=== PATIENT | female | born 1945 | race Caucasian/White ===

== ENCOUNTER 2017-05-03 10:28 | Outpatient (CLI) | payer MEDICARE, BC ==
[2017-05-03 10:50] LABS: BASOPHILS # (AUTO) 0.1 10^3/uL (0.0-0.1); BASOPHILS % (AUTO) 0.9 %; EOSINOPHILS # (AUTO) 0.3 10^3/uL (0.0-0.7); EOSINOPHILS % (AUTO) 3.2 %; HCT - HEMATOCRIT 43.3 % (37.0-47.0); HGB - HEMOGLOBIN 14.4 g/dL (12.0-16.0); LYMPHOCYTES # (AUTO) 2.6 10^3/uL (1.5-3.5); LYMPHOCYTES % (AUTO) 33.4 %; MEAN CORPUSCULAR HEMOGLOBIN 29.4 pg (27.0-31.0); MEAN CORPUSCULAR HGB CONC 33.2 g/dL (32.0-36.0); MEAN CORPUSCULAR VOLUME 88.6 fL (81.0-99.0); MEAN PLATELET VOLUME 7.4 fL (7.9-10.8); MONOCYTES # (AUTO) 0.5 10^3/uL (0.0-1.0); MONOCYTES % (AUTO) 6.5 %; NEUTROPHILS # (AUTO) 4.4 10^3/uL (1.5-6.6); RED BLOOD COUNT 4.89 10^6/uL (4.20-5.40); RED CELL DISTRIBUTION WIDTH 13.6 % (12.0-15.0); UNCORRECTED WHITE BLOOD COUNT 7.9 x10^3/uL; WHITE BLOOD COUNT 7.9 x10^3/uL (4.8-10.8)
[2017-05-03 11:19] LABS: ALBUMIN/GLOBULIN RATIO 1.5 (1.0-2.2); BILIRUBIN,TOTAL 0.7 mg/dL (0.2-1.0); BUN - BLOOD UREA NITROGEN 19 mg/dL (6-20); CALCIUM 9.3 mg/dL (8.5-10.3); CARBON DIOXIDE - CO2 25 mmol/L (21-32); CHLORIDE 102 mmol/L (101-111); CHOL/HDL RATIO 2.6 (<4.4); CHOLESTEROL 173 mg/dL; GFR - MDRD 55 (>89); GLUCOSE 106 mg/dL (70-100); HDL CHOLESTEROL 67 mg/dL; LDL/HDL RATIO 0.9 (<4.4); POTASSIUM 4.3 mmol/L (3.5-5.0); SODIUM 137 mmol/L (135-145); TOTAL PROTEIN 7.5 g/dL (6.7-8.2); TRIGLYCERIDES 223 mg/dL; VLDL CHOLESTEROL 45 mg/dL
== END 2017-05-03 10:29 | disposition home or self-care (01) ==
LOC: LAB 10:28
PROVIDERS: ATTEND Family Medicine
DX: E78.5 Hyperlipidemia, unspecified (principal); R73.9 Hyperglycemia, unspecified; E03.9 Hypothyroidism, unspecified
CPT/HCPCS: 36415; 80053; 80061; 84443; 85025

== ENCOUNTER 2017-12-06 08:44 | Outpatient (CLI) | payer MEDICARE, BC ==
[2017-12-06 09:13] LABS: BASOPHILS # (AUTO) 0.1 10^3/uL (0.0-0.1); EOSINOPHILS # (AUTO) 0.2 10^3/uL (0.0-0.7); EOSINOPHILS % (AUTO) 2.1 %; HGB - HEMOGLOBIN 14.2 g/dL (12.0-16.0); LYMPHOCYTES # (AUTO) 2.6 10^3/uL (1.5-3.5); LYMPHOCYTES % (AUTO) 27.9 %; MEAN CORPUSCULAR HEMOGLOBIN 30.1 pg (27.0-31.0); MEAN CORPUSCULAR HGB CONC 33.6 g/dL (32.0-36.0); MEAN CORPUSCULAR VOLUME 89.7 fL (81.0-99.0); MEAN PLATELET VOLUME 7.9 fL (7.9-10.8); MONOCYTES # (AUTO) 0.5 10^3/uL (0.0-1.0); MONOCYTES % (AUTO) 5.8 %; NEUTROPHILS # (AUTO) 5.9 10^3/uL (1.5-6.6); NEUTROPHILS % (AUTO) 63.2 %; PLT - PLATELET COUNT 266 10^3/uL (130-450); WHITE BLOOD COUNT 9.4 x10^3/uL (4.8-10.8)
[2017-12-06 09:25] LABS: ALBUMIN 3.9 g/dL (3.2-5.5); ALBUMIN/GLOBULIN RATIO 1.2 (1.0-2.2); ALKALINE PHOSPHATASE 71 IU/L (42-121); ALT ALANINE AMINOTRANSFERASE 19 IU/L (10-60); AST ASPARTATE AMINOTRANSFERASE 19 IU/L (10-42); BILIRUBIN,TOTAL 0.8 mg/dL (0.2-1.0); BUN - BLOOD UREA NITROGEN 15 mg/dL (6-20); CARBON DIOXIDE - CO2 25 mmol/L (21-32); CHLORIDE 104 mmol/L (101-111); CHOL/HDL RATIO 2.2 (<4.4); CHOLESTEROL 163 mg/dL; CREATININE 0.9 mg/dL (0.4-1.0); GFR - MDRD 62 (>89); GLUCOSE 108 mg/dL (70-100); HDL CHOLESTEROL 73 mg/dL; LDL CHOLESTEROL,CALCULATED 67 mg/dL; LDL/HDL RATIO 0.9 (<4.4); SODIUM 137 mmol/L (135-145); TOTAL PROTEIN 7.1 g/dL (6.7-8.2); VLDL CHOLESTEROL 23 mg/dL
[2017-12-06 10:30] LABS: THYROID STIMULATING HORMONE 5.9 uIU/mL (0.34-5.60)
[2017-12-06 11:10] LABS: FREE T4 (FREE THYROXINE) 0.86 ng/dL (0.58-1.64)
== END 2017-12-06 08:45 | disposition home or self-care (01) ==
LOC: LAB 08:44
PROVIDERS: ATTEND Family Medicine
DX: E78.5 Hyperlipidemia, unspecified (principal); R73.9 Hyperglycemia, unspecified; E03.9 Hypothyroidism, unspecified
CPT/HCPCS: 36415; 80053; 80061; 83721; 84439; 84443; 85025

== ENCOUNTER 2018-02-07 09:20 | Outpatient (CLI) | payer MEDICARE, BC | END 2018-02-07 09:21 | disposition home or self-care (01) | LOC: LAB 09:20 | PROVIDERS: ATTEND Family Medicine | DX: N95.2 Postmenopausal atrophic vaginitis (principal) | CPT/HCPCS: 36415; 84443; 84481 ==

== ENCOUNTER 2018-04-10 07:24 | Emergency (ER) | payer MEDICARE, BC ==
[2018-04-10 07:39] VITALS: BP 146/76
[2018-04-10] MEDS ORDERED: DEXAMETHASONE 10 MG/ML VIAL PO STA (07:48)
--- NOTE | 2018-04-10 07:50 | ED Physician Documentation ---
PD HPI URI - Stated complaint Stated Complaint: THROAT PX - Chief complaint Chief Complaint: General - History obtained from History obtained from: Patient, Family - History of Present Illness Timing - onset: How many days ago (5) Timing duration: Days (5) Timing details: Abrupt onset, Still present Associated symptoms: Sore throat, Productive cough Contributing factors: Sick contact ( sick with similar), Travel ( returned from travel to [place]) Improves by: Rest, Medication Similar symptoms before: Has not had sx before Recently seen: Not recently seen - Additional information Additional information: 72-year-old female with a history of chronic persistent asthma has returned from travel to [place] and the day after she got home she developed a sore throat. She states the pain has made it difficult for her to swallow food and she has lost her voice. She felt this was just a cold and then yesterday began to cough up some yellow phlegm she become concerned is coming to the emergency department. She states the worst part of all of this is the pain involved in swallowing. Review of Systems Constitutional: reports: Myalgias, Fatigue. denies: Fever Eyes: denies: Decreased vision Ears: denies: Loss of hearing, Ear pain Nose: reports: Congestion. 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 - Present Medications Home Medications: Ambulatory Orders Medication Instructions Recorded Confirmed Albuterol Sulfate [Proair Hfa] 2 inh IH Q4HR PRN 04/07/13 04/14/17 Aspirin [Aspir 81] 81 mg PO DAILY 04/07/13 04/14/17 Fluticasone [Flonase] 2 sprays ANDREA DAILY PRN 04/07/13 04/14/17 Levothyroxine Sodium [Synthroid] 100 mcg PO DAILY 04/07/13 04/14/17 Loratadine [Claritin] 10 mg ORAL DAILY 04/07/13 04/14/17 Multivitamin [Multi-Day Vitamins] 1 tab ORAL DAILY 04/07/13 04/14/17 Vit D3/Folic Acid/B2/B6/B12 2,000 unit ORAL DAILY 04/07/13 04/14/17 [Folgard Tablet] Metoprolol Tartrate 25 mg PO DAILY 04/17/15 04/14/17 Montelukast [Singulair] 10 mg PO QPM 04/17/15 04/14/17 Budesonide/Formoterol 160/4.5 2 puffs INH BID 04/15/16 04/14/17 [Symbicort] Azithromycin [Zithromax] 250 mg PO DAILY #6 tablet 04/10/18 - Allergies Allergies/Adverse Reactions: Allergies Allergy/AdvReac Type Severity Reaction Status Date / Time adhesive Allergy Rash Verified 04/10/18 07:41 formaldehyde Allergy Rash Verified 04/10/18 07:41 nickel [Nickel] Allergy Rash Verified 04/10/18 07:41 cephalexin monohydrate * AdvReac Mild neuropathy Verified 04/10/18 07:41 [From Keflex] pain metronidazole [From Flagyl] AdvReac Mild neuropathy Verified 04/10/18 07:41 pain Metronidazole HCl * AdvReac Mild neuropathy Verified 04/10/18 07:41 [From Flagyl] pain cefdinir AdvReac Hives Verified 04/10/18 07:41 cetirizine HCl * AdvReac Hallucinati Verified 04/10/18 07:41 [From Zyrtec] ons gabapentin AdvReac Unknown Verified 04/10/18 07:41 simvastatin [From Zocor] AdvReac Cramps Verified 04/10/18 07:41 Horse serum Allergy Unknown unknown Uncoded 04/07/13 13:23 Methyl methaculate (medical Allergy Unknown unknown Uncoded 04/07/13 13:26 Plastic neosporin eye gtts. Allergy Unknown unknown Uncoded 04/07/13 13:24 sulfites AdvReac Respiratory Uncoded 04/18/14 14:54 - Social History Does the pt smoke?: No Smoking Status: Never smoker Does the pt drink ETOH?: No Does the pt have substance abuse?: No - Immunizations Immunizations are current?: Yes - POLST Patient has POLST: No PD ED PE NORMAL - Vitals Vital signs reviewed: Yes (hypertensive ) - General General: Alert and oriented X 3, No acute distress, Well developed/nourished - HEENT HEENT: Atraumatic, PERRL, EOMI, Ears normal, Moist mucous membranes, Other ( inflamation to the posterior pharynx) - Neck Neck: Supple, no meningeal sign, No bony TTP - Cardiac Cardiac: RRR, No murmur - Respiratory Respiratory: No respiratory distress, Clear bilaterally - Abdomen Abdomen: Soft, Non tender - Back Back: No CVA TTP, No spinal TTP - Derm Derm: Normal color, Warm and dry, No rash - Extremities Extremities: No deformity, No edema - Neuro Neuro: Alert and oriented X 3, 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, No motor deficit, No sensory deficit, Normal speech Eye Opening: Spontaneous Motor: Obeys Commands Verbal: Oriented GCS Score: 15 - Psych Psych: Normal mood, Normal affect Results - Vitals Vitals: Vital Signs - 24 hr 04/10/18 07:37 Temperature 36.1 C L Heart Rate 75 Respiratory 20 Rate Blood Pressure 146/76 H O2 Saturation 98 Oxygen O2 Source Room air PD MEDICAL DECISION MAKING - ED course Complexity details: reviewed old records, considered differential, d/w patient, d/w family ED course: 72-year-old female with chronic persistent asthma has a severe sore throat and is having some difficulty swallowing. She did lose her voice and I am thinking this is likely a parainfluenza virus 1 or 2. She has developed production of thick yellow phlegm and I suspect secondary infection and the reason for the emergency department visit. She is administered dexamethasone here in the emergency department and we will place her on some azithromycin for secondary infection. - Sepsis Event Vital Signs: Vital Signs - 24 hr 04/10/18 07:37 Temperature 36.1 C L Heart Rate 75 Respiratory 20 Rate Blood Pressure 146/76 H O2 Saturation 98 Oxygen O2 Source Room air Departure - Departure Disposition: 01 Home, Self Care Clinical Impression: Parainfluenza virus laryngitis Asthmatic bronchitis Qualifiers: Asthma severity: moderate Asthma persistence: persistent Asthma complication type: with acute exacerbation Qualified Code(s): J45.41 - Moderate persistent asthma with (acute) exacerbation Condition: Stable Instructions: ED Bronchitis Asthmatic, ED Pharyngitis Viral Follow-Up: Jesus Parmar MD [Primary Care Provider] - Prescriptions: Azithromycin [Zithromax] 250 mg PO DAILY #6 tablet
== END 2018-04-10 07:57 | disposition home or self-care (01) ==
LOC: ED 07:24
DX: J45.41 Moderate persistent asthma with (acute) exacerbation (principal); J02.9 Acute pharyngitis, unspecified; I10 Essential (primary) hypertension; E03.9 Hypothyroidism, unspecified; Z79.82 Long term (current) use of aspirin
CPT/HCPCS: 99283

== ENCOUNTER 2018-04-20 09:36 | Day surgery (SDC) | payer MEDICARE, BC ==
[2018-04-20] MEDS ORDERED: LACTATED RINGERS 1,000 ML IV ONE (09:40)
[2018-04-20] MEDS ORDERED: fentaNYL 250 MCG/5 ML VIAL IVP ONE (11:45)
[2018-04-20] MEDS ORDERED: MIDAZOLAM 2 MG/2 ML VIAL IVP ONE (11:45)
[2018-04-20] MEDS ORDERED: SIMETHICONE 40 MG/0.6 ML 30 ML BOTTLE ONE (12:02)
[2018-04-20 12:29] VITALS: BP 116/65
== END 2018-04-20 09:37 | disposition home or self-care (01) ==
LOC: SDS 09:36
PROVIDERS: ATTEND Internal Medicine
PROC: 0DBL8ZZ Excision of Transverse Colon, Via Natural or Artificial Opening Endoscopic (ICD-10-PCS; principal; 2018-04-20 10:30)
DX: Z12.11 Encounter for screening for malignant neoplasm of colon (principal); D12.3 Benign neoplasm of transverse colon; K64.1 Second degree hemorrhoids
CPT/HCPCS: 45380; A9270; J7120; 88305

== ENCOUNTER 2018-05-26 10:58 | Outpatient (CLI) | payer MEDICARE, BC ==
--- NOTE | 2018-05-26 14:35 | CT Report ---
Reason: PULMONARY NODULE Procedure Date: 05/26/2018 Accession Number: [id number] / [id number] Procedure: CT - Chest W/O CPT Code: FULL RESULT: EXAM: CT CHEST EXAM DATE: 05/26/2018 11:17 AM. CLINICAL HISTORY: PULMONARY NODULE. COMPARISONS: 05/04/2013. TECHNIQUE: Routine helical CT imaging was performed through the chest. IV contrast: None. Reconstructions: Coronal and sagittal. In accordance with CT protocol optimization, one or more of the following dose reduction techniques were utilized for this exam: automated exposure control, adjustment of mA and/or KV based on patient size, or use of iterative reconstructive technique. FINDINGS: Lungs/Pleura: The previously described lingular nodule is no longer seen. The left lower lobe 2 mm nodule described on the prior report is unchanged series 4 image 47. Scattered punctate calcified granulomata are present. A few dilated mucus filled bronchi and peripheral 1-3 mm nodules are noted; for example series 4 images 39 and 49. Pulmonary vasculature is normal. No pericardial or pleural effusion. No pneumothorax. Mediastinum: No adenopathy or masses. The heart and great vessels are normal. Bones: Scattered degenerative change in the spine. Mild mid thoracic dextroscoliosis. Included upper Abdomen: Cholelithiasis Other: Postsurgical change right breast IMPRESSION: 1. Presumed chronic changes are present including scattered punctate calcifications, few peripheral 1-3 mm nodules, and few dilated mucus filled bronchi. No suspicious lung nodules are seen. 2. Cholelithiasis 3. No acute findings. RADIA
== END 2018-05-26 10:59 | disposition home or self-care (01) ==
LOC: DI 10:58
PROVIDERS: ATTEND Allergy & Immunology
DX: R91.8 Other nonspecific abnormal finding of lung field (principal); K80.20 Calculus of gallbladder without cholecystitis without obstruction
CPT/HCPCS: 71250

== ENCOUNTER 2018-06-08 10:49 | Outpatient (CLI) | payer MEDICARE, BC ==
--- NOTE | 2018-06-09 15:42 | Mammography Report ---
Reason: ANNUAL SCREENING Procedure Date: 06/08/2018 Accession Number: [id number] / [id number] Procedure: TRESSA - Screening Mammo w/Gaurang CPT Code: FULL RESULT: EXAM: Screening Mammo w/Gaurang DATE: 06/08/2018 11:46 AM CLINICAL HISTORY: 72 year-old nulliparous female with history of breast cancer status post lumpectomy and radiation for right breast cancer. TECHNIQUE: Bilateral CC and MLO views were obtained. COMPARISON: 06/07/2017, 06/04/2016. FINDINGS: The breasts demonstrate scattered fibroglandular densities bilaterally. Posttreatment changes are seen in the right breast. No suspicious masses, clustered microcalcifications, or regions of architectural distortion are identified. IMPRESSION: Benign findings RECOMMENDATION: Routine annual screening unless otherwise clinically indicated. BIRADS CATEGORY 2: Benign findings STANDARD QUALIFYING STATEMENTS: 1. This examination was not reviewed with the aid of Computer-Aided Detection (CAD). 2. A negative or benign imaging report should not delay biopsy if clinically suspicious findings are present. Consider surgical consultation if warranted. More than 5% of cancers are not identified by imaging. 3. Dense breasts may obscure an underlying neoplasm. 4. This examination was reviewed with the aid of 3D breast imaging (tomosynthesis).
== END 2018-06-08 10:50 | disposition home or self-care (01) ==
LOC: DI 10:49
DX: Z12.31 Encounter for screening mammogram for malignant neoplasm of breast (principal); Z85.3 Personal history of malignant neoplasm of breast
CPT/HCPCS: 77063; 77067

== ENCOUNTER 2018-06-08 11:51 | Outpatient (CLI) | payer MEDICARE, BC | END 2018-06-08 11:52 | disposition home or self-care (01) | LOC: LAB 11:51 | PROVIDERS: ATTEND Allergy & Immunology | DX: J45.30 Mild persistent asthma, uncomplicated (principal) | CPT/HCPCS: 36415; 85018 ==

== ENCOUNTER 2018-12-02 09:27 | Outpatient (CLI) | payer MEDICARE, BC ==
[2018-12-02 09:58] LABS: BASOPHILS # (AUTO) 0.1 10^3/uL (0.0-0.1); BASOPHILS % (AUTO) 1.5 %; EOSINOPHILS # (AUTO) 0.2 10^3/uL (0.0-0.7); EOSINOPHILS % (AUTO) 2.5 %; LYMPHOCYTES # (AUTO) 2.4 10^3/uL (1.5-3.5); MEAN CORPUSCULAR HEMOGLOBIN 29.4 pg (27.0-31.0); MEAN CORPUSCULAR HGB CONC 33.2 g/dL (32.0-36.0); MEAN CORPUSCULAR VOLUME 88.5 fL (81.0-99.0); MEAN PLATELET VOLUME 7.9 fL (7.9-10.8); MONOCYTES # (AUTO) 0.5 10^3/uL (0.0-1.0); MONOCYTES % (AUTO) 6.7 %; NEUTROPHILS # (AUTO) 4.3 10^3/uL (1.5-6.6); NEUTROPHILS % (AUTO) 57.3 %; PLT - PLATELET COUNT 282 10^3/uL (130-450); RED BLOOD COUNT 4.76 10^6/uL (4.20-5.40); RED CELL DISTRIBUTION WIDTH 14.4 % (12.0-15.0); WHITE BLOOD COUNT 7.5 x10^3/uL (4.8-10.8)
[2018-12-02 10:14] LABS: ALBUMIN/GLOBULIN RATIO 1.3 (1.0-2.2); ALKALINE PHOSPHATASE 71 IU/L (42-121); ALT ALANINE AMINOTRANSFERASE 22 IU/L (10-60); AST ASPARTATE AMINOTRANSFERASE 24 IU/L (10-42); BILIRUBIN,TOTAL 0.7 mg/dL (0.2-1.0); BUN - BLOOD UREA NITROGEN 20 mg/dL (6-20); CARBON DIOXIDE - CO2 27 mmol/L (21-32); CHLORIDE 102 mmol/L (101-111); CHOL/HDL RATIO 2.4 (<4.4); CHOLESTEROL 159 mg/dL; CREATININE 0.8 mg/dL (0.4-1.0); GFR - MDRD 70 (>89); GLUCOSE 138 mg/dL (70-100); HDL CHOLESTEROL 65 mg/dL; LDL CHOLESTEROL,CALCULATED 63 mg/dL; SODIUM 139 mmol/L (135-145); TOTAL PROTEIN 7.1 g/dL (6.7-8.2); VLDL CHOLESTEROL 31 mg/dL
== END 2018-12-02 09:28 | disposition home or self-care (01) ==
LOC: LAB 09:27
PROVIDERS: ATTEND Family Medicine
DX: E03.9 Hypothyroidism, unspecified (principal)
CPT/HCPCS: 36415; 80053; 80061; 83721; 84443; 85025

== ENCOUNTER 2018-12-16 10:57 | Outpatient (CLI) | payer MEDICARE, BC ==
--- NOTE | 2018-12-19 10:28 | CT Report ---
Reason: ASTHMA/COPD UNSPECIFIED,PULMONARY NODULE Procedure Date: 12/16/2018 Accession Number: [id number] / [id number] Procedure: CT - CHEST WO CPT Code: FULL RESULT: EXAM: CT CHEST EXAM DATE: 12/16/2018 11:10 AM. CLINICAL HISTORY: ASTHMA/COPD Unspecified, pulmonary NODULE. COMPARISONS: CHEST W/O 05/26/2018 11:16 AM. TECHNIQUE: Routine helical CT imaging was performed through the chest. IV contrast: None. Reconstructions: Coronal and sagittal. In accordance with CT protocol optimization, one or more of the following dose reduction techniques were utilized for this exam: automated exposure control, adjustment of mA and/or KV based on patient size, or use of iterative reconstructive technique. 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 Areas of scarring bilaterally. Calcified granulomas. Mediastinum: Normal. No adenopathy or masses. The heart and great vessels are normal. Bones: DJD spine Visualized Abdomen: Cholelithiasis Other: None. IMPRESSION: 1. Stable small bilateral lung nodules largest 5 mm. 2. Bilateral areas of mucous plugging. 3. Cholelithiasis. 4. No new findings RADIA
== END 2018-12-16 10:58 | disposition home or self-care (01) ==
LOC: DI 10:57
PROVIDERS: ATTEND Allergy & Immunology
DX: R91.8 Other nonspecific abnormal finding of lung field (principal); K80.20 Calculus of gallbladder without cholecystitis without obstruction
CPT/HCPCS: 71250

== ENCOUNTER 2019-05-04 08:32 | Outpatient (CLI) | payer MEDICARE, BC ==
[2019-05-04 09:38] LABS: BASOPHILS % (AUTO) 0.4 %; EOSINOPHILS # (AUTO) 0.2 10^3/uL (0.0-0.7); EOSINOPHILS % (AUTO) 1.7 %; HGB - HEMOGLOBIN 14.2 g/dL (12.0-16.0); LYMPHOCYTES # (AUTO) 2.8 10^3/uL (1.5-3.5); LYMPHOCYTES % (AUTO) 27.6 %; MEAN CORPUSCULAR HGB CONC 33.5 g/dL (32.0-36.0); MEAN CORPUSCULAR VOLUME 89.6 fL (81.0-99.0); MEAN PLATELET VOLUME 9.8 fL (7.9-10.8); MONOCYTES # (AUTO) 0.6 10^3/uL (0.0-1.0); MONOCYTES % (AUTO) 6.2 %; NEUTROPHILS # (AUTO) 6.5 10^3/uL (1.5-6.6); NEUTROPHILS % (AUTO) 63.5 %; PLT - PLATELET COUNT 311 10^3/uL (130-450); RED BLOOD COUNT 4.73 10^6/uL (4.20-5.40); RED CELL DISTRIBUTION WIDTH 12.9 % (12.0-15.0); WHITE BLOOD COUNT 10.3 x10^3/uL (4.8-10.8)
[2019-05-04 10:16] LABS: ALBUMIN 4.2 g/dL (3.2-5.5); ALBUMIN/GLOBULIN RATIO 1.5 (1.0-2.2); BILIRUBIN,TOTAL 0.6 mg/dL (0.2-1.0); CALCIUM 8.9 mg/dL (8.5-10.3); CREATININE 0.8 mg/dL (0.4-1.0)
== END 2019-05-04 08:33 | disposition home or self-care (01) ==
LOC: LAB 08:32
PROVIDERS: ATTEND Family Medicine
DX: E78.5 Hyperlipidemia, unspecified (principal); R00.2 Palpitations; J45.998 Other asthma; C50.919 Malignant neoplasm of unspecified site of unspecified female breast
CPT/HCPCS: 36415; 80053; 85025

== ENCOUNTER 2019-06-09 09:48 | Outpatient (CLI) | payer MEDICARE, BC ==
--- NOTE | 2019-06-12 09:25 | Mammography Report ---
Reason: ANNUAL MAMMO Procedure Date: 06/09/2019 Accession Number: [id number] / [id number] Procedure: TRESSA - Screening Mammo w/Gaurang CPT Code: Final Report FULL RESULT: EXAM: Screening Mammo w/Gaurang DATE: 06/09/2019 10:28 AM CLINICAL HISTORY: Routine screening. Personal history of treated right breast cancer status post lumpectomy in 2001. No reported family history of breast cancer. TECHNIQUE: (B) - Bilateral CC and MLO views were obtained. COMPARISON: 06/08/2018 through 11/13/2009 PARENCHYMAL PATTERN: (F) - The breasts demonstrate diffuse fatty replacement bilaterally. FINDINGS: Bilateral breasts: There are stable lumpectomy changes from the subareolar right breast. There are no suspicious masses, calcifications, or areas of distortion. IMPRESSION: Benign findings. BI-RADS category 2. RECOMMENDATION: (ANNUAL) - Recommend routine annual screening mammography. BI-RADS CATEGORY: (2) - Benign Findings. STANDARD QUALIFYING STATEMENTS: 1. This examination was not reviewed with the aid of Computer-Aided Detection (CAD). 2. A negative or benign imaging report should not preclude biopsy if clinically suspicious findings are present. 3. Dense breasts may obscure an underlying neoplasm. 4. This examination was reviewed with the aid of 3D breast imaging (tomosynthesis).
== END 2019-06-09 09:49 | disposition home or self-care (01) ==
LOC: DI 09:48
DX: Z12.31 Encounter for screening mammogram for malignant neoplasm of breast (principal); Z85.3 Personal history of malignant neoplasm of breast
CPT/HCPCS: 77063; 77067

== ENCOUNTER 2020-02-19 09:47 | Outpatient (CLI) | payer MEDICARE, BC ==
[2020-02-19 10:14] LABS: BASOPHILS % (AUTO) 0.4 %; EOSINOPHILS # (AUTO) 0.2 10^3/uL (0.0-0.7); EOSINOPHILS % (AUTO) 2.9 %; HGB - HEMOGLOBIN 14.4 g/dL (12.0-16.0); LYMPHOCYTES # (AUTO) 2.6 10^3/uL (1.5-3.5); MEAN CORPUSCULAR HEMOGLOBIN 30.4 pg (27.0-31.0); MEAN CORPUSCULAR HGB CONC 33.3 g/dL (32.0-36.0); MEAN CORPUSCULAR VOLUME 91.4 fL (81.0-99.0); MEAN PLATELET VOLUME 9.4 fL (7.9-10.8); MONOCYTES # (AUTO) 0.5 10^3/uL (0.0-1.0); MONOCYTES % (AUTO) 7.1 %; NEUTROPHILS # (AUTO) 4.2 10^3/uL (1.5-6.6); NEUTROPHILS % (AUTO) 55.2 %; PLT - PLATELET COUNT 284 10^3/uL (130-450); RED BLOOD COUNT 4.74 10^6/uL (4.20-5.40); RED CELL DISTRIBUTION WIDTH 13.4 % (12.0-15.0); WHITE BLOOD COUNT 7.6 x10^3/uL (4.8-10.8)
[2020-02-19 10:35] LABS: ALBUMIN 4.4 g/dL (3.2-5.5); ALBUMIN/GLOBULIN RATIO 1.7 (1.0-2.2); ALKALINE PHOSPHATASE 67 IU/L (42-121); ALT ALANINE AMINOTRANSFERASE 22 IU/L (10-60); AST ASPARTATE AMINOTRANSFERASE 19 IU/L (10-42); BUN - BLOOD UREA NITROGEN 19 mg/dL (6-20); CALCIUM 8.9 mg/dL (8.5-10.3); CARBON DIOXIDE - CO2 24 mmol/L (21-32); CHLORIDE 104 mmol/L (101-111); CHOL/HDL RATIO 2.3 (<4.4); CHOLESTEROL 147 mg/dL; CREATININE 0.9 mg/dL (0.4-1.0); GLUCOSE 132 mg/dL (70-100); HDL CHOLESTEROL 64 mg/dL; LDL CHOLESTEROL,CALCULATED 53 mg/dL; LDL/HDL RATIO 0.8 (<4.4); SODIUM 138 mmol/L (135-145); VLDL CHOLESTEROL 30 mg/dL
== END 2020-02-19 09:48 | disposition home or self-care (01) ==
LOC: LAB 09:47
PROVIDERS: ATTEND Family Medicine
DX: J44.9 Chronic obstructive pulmonary disease, unspecified (principal); R03.0 Elevated blood-pressure reading, without diagnosis of hypertension; E78.5 Hyperlipidemia, unspecified
CPT/HCPCS: 36415; 80053; 80061; 83721; 84443; 85025

== ENCOUNTER 2020-06-26 14:28 | Outpatient (CLI) | payer MEDICARE, BC ==
--- NOTE | 2020-06-28 13:17 | Mammography Report ---
BILATERAL DIGITAL SCREENING MAMMOGRAM 3D/2D: 06/26/2020 CLINICAL: Routine screening. Personal history of right breast cancer. Comparison is made to exams dated: 06/09/2019 mammogram, 06/07/2017 mammogram, 06/08/2018 mammogram, mammogram, 05/31/2015 mammogram, and 05/17/2014 mammogram - [facility]. Th e tissue of both breasts is predominantly fatty. No significant masses, calcifications, or other findings are seen in either breast. There has been no significant interval change. IMPRESSION: NEGATIVE There is no mammographic evidence of malignancy. A 1 year screening mammogram is recommended. This exam was interpreted at Station ID: [id number]. NOTE: For mammograms, a report in lay terms will be sent to the patient. Approximately 15% of breast malignancies will not be visualized mammographically. In the management of a palpable breast mass, a negative mammogram must not discourage biopsy of a clinically suspicious lesion. Electronically Signed By: Brian Edmonds M.D., jr/edmundo:06/26/2020 15:28:04 ACR BI-RADS Category 1: Negative 3341F PARENCHYMAL PATTERN: (F) - The breast(s) demonstrate(s) diffuse fatty replacement. BI-RADS CATEGORY: (1) - 1 RECOMMENDATION: (ANNUAL) - Recommend routine annual screening mammography. [id number] 1 year screening LATERALITY: (B)
== END 2020-06-26 14:29 | disposition home or self-care (01) ==
LOC: DI 14:28
PROVIDERS: ATTEND Internal Medicine
DX: Z12.31 Encounter for screening mammogram for malignant neoplasm of breast (principal); Z08 Encounter for follow-up examination after completed treatment for malignant neoplasm; Z85.3 Personal history of malignant neoplasm of breast
CPT/HCPCS: 77063; 77067

== ENCOUNTER 2020-08-14 09:23 | Outpatient (CLI) | payer MEDICARE, BC ==
--- OUTSIDE RECORDS SUMMARY | 2020-08-14 09:27 | EXTERNAL MEDICAL SUMMARY RPT | Continuity of Care Document ---
:1945 Demographics Phone Unavailable Preferred Language Urdu Marital Status Unknown Cheondoism Affiliation Unknown Race Unknown Ethnic Group Unknown Author Organization [facility] Address [address] [place] [address] Phone Care Team Providers Name Role Phone Ghulam Unavailable Unavailable Unavailable Unavailable Brittany Unavailable Unavailable Nori Unavailable Unavailable Problems date description facility 2012-12-14 08:[address] [facility] 2012-12-14 08:21 OTH MED,LT,CURRENT USE [facility] [place] 2012-12-14 08:21 SCREEN LIPOID DISORDERS [facility] 2012-12-21 00:00 HYPOTHYROIDISM NOS [facility] [place] 2013-01-19 18:22 HYPOTHYROIDISM NOS [facility] [place] 2013-01-19 18:22 IDIO PERIPH NEURPTHY NOS [facility] 2013-02-20 09:41 LUMB/LUMBOSAC DISC DEGEN [facility] 2013-02-20 09:41 PAIN IN LIMB [facility] [place] 2013-02-20 09:41 MUSCSKEL SYMPT LIMB NEC [facility] 2013-03-06 10:10 HX OF BREAST MALIGNANCY [facility] 2013-03-06 10:10 SCRN MAMMO-HIGH RISK PT, MALIGNANT Formerly [facility] NEOPLASM OF BREAST 2013-04-10 11:35 BENIGN NEOPLASM LG BOWEL [facility] 2013-04-10 11:35 MONONEURITIS LEG NOS [facility] [place] 2013-04-10 11:35 DIVERTICULOSIS COLON (W/O MENT OF [facility] HEMORRHAGE) 2013-04-10 11:35 HX OF BREAST MALIGNANCY [facility] 2013-04-10 11:35 SCREEN MAL NEOP-COLON [facility] d[facility] [place] 2013-04-17 08:44 HX OF BREAST MALIGNANCY [facility] 2013-04-17 08:44 COMB TREATMENT FOLLOW-UP [facility] 2013-05-04 08:[address] [facility] 2013-05-04 08:56 DEPRESSIVE DISORDER NEC [facility] 2013-05-04 08:56 IDIO PERIPH NEURPTHY NOS [facility] 2013-05-04 08:[address] [facility] 2013-05-04 08:56 CHRONIC OBSTRUCTIVE ASTHMA, NOS [facility] 2013-05-04 08:56 DIVERTICULITIS OF COLON WITH [facility] HEMORRHAGE 2013-05-04 08:56 OSTEOARTHROS NOS-UNSPEC [facility] 2013-05-04 08:56 ABDOMINAL PAIN, LEFT LOWER [facility] QUADRANT 2013-05-18 09:14 IDIO PERIPH NEURPTHY NOS [facility] 2013-05-29 13:55 IDIO PERIPH NEURPTHY NOS [facility] 2013-07-18 10:38 DIVERTICULITIS COLON (W/O MENT OF [facility] HEMORRHAGE) 2013-07-19 10:24 DIVERTICULITIS COLON (W/O MENT OF [facility] HEMORRHAGE) 2013-12-15 08:34 HYPERLIPIDEMIA NEC/NOS [facility] 2013-12-15 08:34 OTHER ABNORMAL GLUCOSE [facility] 2013-12-15 08:34 ELEV BL PRES W/O HYPERTN [facility] 2013-12-15 08:34 OTH MED,LT,CURRENT USE [facility] 2014-01-17 08:00 JOINT PAIN-MULT JTS [facility] 2014-02-01 08:[address] [facility] 2014-04-18 09:48 MONONEURITIS ARM NOS [facility] 2014-04-18 09:48 MONONEURITIS LEG NOS [facility] 2014-04-18 09:48 CARDIAC DYSRHYTHMIAS [facility] 2014-04-18 09:48 OSTEOARTHROS NOS-UNSPEC [facility] 2014-04-18 09:48 HX OF BREAST MALIGNANCY [facility] 2014-04-18 09:48 COMB TREATMENT FOLLOW-UP [facility] 2014-05-15 07:00 IDIO PERIPH NEURPTHY NOS [facility] 2014-05-15 07:[address] [facility] 2014-05-15 07:00 OTHER ABNORMAL GLUCOSE [facility] 2014-05-17 10:31 HX OF BREAST MALIGNANCY [facility] 2014-05-17 10:31 SCRN MAMMO-HIGH RISK PT, MALIGNANT i [facility] NEOPLASM OF BREAST 2015-03-06 09:[address] [facility] 2015-03-06 09:06 LIPOID METABOL DIS NOS [facility] 2015-03-06 09:06 ABN BLOOD CHEMISTRY [facility] 2015-04-08 09:19 HYPERLIPIDEMIA NEC/NOS [facility] 2015-04-17 09:07 MONONEURITIS ARM NOS [facility] 2015-04-17 09:07 MONONEURITIS LEG NOS [facility] 2015-04-17 09:07 CARDIAC DYSRHYTHMIAS [facility] 2015-04-17 09:07 OSTEOARTHROS NOS-UNSPEC [facility] 2015-04-17 09:07 HX OF BREAST MALIGNANCY [facility] 2015-04-17 09:07 COMB TREATMENT FOLLOW-UP [facility] 2015-05-31 10:51 ENCNTR SCREEN MAMMOGRAM FOR [facility] MALIGNANT NEOPLASM OF BREAST 2015-05-31 10:51 PERSONAL HISTORY OF MALIGNANT [facility] NEOPLASM OF BREAST 2015-12-21 09:25 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, UNSPECIFIED 2015-12-21 09:25 SYNCOPE AND COLLAPSE [facility] 2015-12-21 09:25 HYPERGLYCEMIA, UNSPECIFIED [facility] 2016-01-30 08:47 UNSPECIFIED MENOPAUSAL AND [facility] PERIMENOPAUSAL DISORDER 2016-04-15 09:35 ENCNTR FOR FOLLOW-UP EXAM AFTER [facility] TRTMT FOR MALIGNANT NEOPLASM 2016-04-15 09:35 PERSONAL HISTORY OF MALIGNANT [facility] NEOPLASM OF BREAST 2016-05-04 09:07 HYPERLIPIDEMIA, UNSPECIFIED [facility] 2016-05-04 09:07 UNSPECIFIED ASTHMA, UNCOMPLICATED [facility] 2016-05-04 09:[address] [facility] 2016-05-04 09:07 ELEVATED BLOOD-PRESSURE READING, [facility] W/O DIAGNOSIS OF HTN 2016-06-04 14:03 ENCNTR SCREEN MAMMOGRAM FOR [facility] MALIGNANT NEOPLASM OF BREAST 2016-06-04 14:03 PERSONAL HISTORY OF MALIGNANT [facility] NEOPLASM OF BREAST 2017-05-03 10:28 [facility] 2017-05-03 10:28 HYPERLIPIDEMIA, [facility] 2017-05-03 10:28 HYPERGLYCEMIA, [facility] 2017-06-07 13:05 ENCNTR SCREEN MAMMOGRAM FOR [facility] MALIGNANT NEOPLASM OF BREAST 2017-06-07 13:05 PERSONAL HISTORY OF MALIGNANT [facility] NEOPLASM OF BREAST 2017-06-09 07:00 ENCNTR FOR FOLLOW-UP EXAM AFTER [facility] TRTMT FOR MALIGNANT NEOPLASM 2017-06-09 07:00 PERSONAL HISTORY OF MALIGNANT [facility] NEOPLASM OF BREAST 2017-12-06 08:44 HYPOTHYROIDISM, UNSPECIFIED [facility] 2017-12-06 08:44 HYPERLIPIDEMIA, UNSPECIFIED [facility] 2017-12-06 08:44 HYPERGLYCEMIA, [facility] 2018-02-07 09:20 POSTMENOPAUSAL ATROPHIC VAGINITIS [facility] 2018-04-10 07:24 HYPOTHYROIDISM, UNSPECIFIED [facility] 2018-04-10 07:24 ESSENTIAL (PRIMARY) HYPERTENSION [facility] 2018-04-10 07:24 ACUTE PHARYNGITIS, [facility] 2018-04-10 07:24 MODERATE PERSISTENT ASTHMA WITH [facility] (ACUTE) EXACERBATION 2018-04-10 07:24 PAIN IN THROAT 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 2018-04-20 09:36 SECOND DEGREE HEMORRHOIDS [facility] 2018-04-20 09:36 ENCOUNTER FOR SCREENING FOR [facility] MALIGNANT NEOPLASM OF COLON 2018-05-26 10:58 CALCULUS OF GALLBLADDER W/O [facility] CHOLECYSTITIS W/O OBSTRUCTION 2018-05-26 10:58 OTHER NONSPECIFIC ABNORMAL FINDING [facility] 2018-06-08 10:49 ENCNTR SCREEN MAMMOGRAM FOR [facility] MALIGNANT NEOPLASM OF BREAST 2018-06-08 10:49 PERSONAL HISTORY OF MALIGNANT [facility] NEOPLASM OF BREAST 2018-06-08 11:51 MILD PERSISTENT ASTHMA, [facility] UNCOMPLICATED 2018-06-15 13:40 UNSPECIFIED ASTHMA, UNCOMPLICATED [facility] 2018-06-15 13:40 ENCNTR FOR FOLLOW-UP EXAM AFTER [facility] TRTMT FOR MALIGNANT NEOPLASM 2018-06-15 13:40 PERSONAL HISTORY OF MALIGNANT [facility] NEOPLASM OF BREAST 2018-06-15 13:40 PERSONAL HISTORY OF OTHER DRUG Located Within [facility] THERAPY 2018-06-15 13:40 PERSONAL HISTORY OF IRRADIATION [facility] 2018-12-02 09:27 HYPOTHYROIDISM, UNSPECIFIED [facility] 2018-12-16 10:57 CALCULUS OF GALLBLADDER W/O [facility] CHOLECYSTITIS W/O OBSTRUCTION 2018-12-16 10:57 OTHER NONSPECIFIC ABNORMAL FINDING [facility] 2019-03-15 08:13 UNSPECIFIED ASTHMA, UNCOMPLICATED [facility] 2019-03-15 08:13 ENCNTR FOR FOLLOW-UP EXAM AFTER [facility] TRTMT FOR MALIGNANT NEOPLASM 2019-03-15 08:13 PERSONAL HISTORY OF MALIGNANT [facility] NEOPLASM OF BREAST 2019-03-15 08:13 PERSONAL HISTORY OF OTHER DRUG Located Within [facility] THERAPY 2019-03-15 08:13 PERSONAL HISTORY OF IRRADIATION [facility] 2019-05-04 08:32 MALIGNANT NEOPLASM OF UNSP SITE OF [facility] UNSPECIFIED FEMALE BREAST 2019-05-04 08:32 HYPERLIPIDEMIA, UNSPECIFIED [facility] 2019-05-04 08:[address] [facility] 2019-05-04 08:[address] 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, UNSPECIFIED 2019-06-14 08:50 ENCNTR FOR FOLLOW-UP EXAM AFTER [facility] TRTMT FOR MALIGNANT NEOPLASM 2019-06-14 08:50 PERSONAL HISTORY OF MALIGNANT [facility] NEOPLASM OF BREAST 2019-06-14 08:50 PERSONAL HISTORY OF OTHER DRUG Located Within [facility] THERAPY 2019-06-14 08:50 PERSONAL HISTORY OF IRRADIATION [facility] 2020-02-19 09:47 HYPERLIPIDEMIA, UNSPECIFIED [facility] 2020-02-19 09:47 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, UNSPECIFIED 2020-02-19 09:47 ELEVATED BLOOD-PRESSURE READING, [facility] W/O DIAGNOSIS OF HTN 2020-02-29 16:35 DVRTCLOS OF LG INT W/O PERFORATION [facility] OR ABSCESS W/O BLEEDING 2020-02-29 16:35 FATTY (CHANGE OF) LIVER, NOT [facility] ELSEWHERE CLASSIFIED 2020-02-29 16:35 CALCULUS OF GALLBLADDER W/O [facility] CHOLECYSTITIS W/O OBSTRUCTION 2020-02-29 16:35 ABDOMINAL DISTENSION (GASEOUS) Located [facility] 2020-02-29 16:35 OTHER NONSPECIFIC ABNORMAL FINDING [facility] OF LUNG FIELD 2020-06-19 11:00 PERSONAL HISTORY OF MALIGNANT [facility] NEOPLASM OF BREAST 2020-06-19 11:00 PERSONAL HISTORY OF OTHER DRUG Located [facility] THERAPY 2020-06-19 11:00 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, UNSPECIFIED 2020-06-19 11:00 ENCNTR FOR FOLLOW-UP EXAM AFTER [facility] TRTMT FOR MALIGNANT NEOPLASM 2020-06-19 11:00 PERSONAL HISTORY OF IRRADIATION [facility] 2020-06-26 14:28 ENCNTR FOR FOLLOW-UP EXAM AFTER [facility] TRTMT FOR MALIGNANT NEOPLASM 2020-06-26 14:28 ENCNTR SCREEN MAMMOGRAM FOR [facility] MALIGNANT NEOPLASM OF BREAST 2020-06-26 14:28 PERSONAL HISTORY OF MALIGNANT [facility] NEOPLASM OF BREAST 2020-06-26 14:45 ENCNTR SCREEN MAMMOGRAM FOR [facility] MALIGNANT NEOPLASM OF BREAST 2020-07-10 09:36 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, UNSPECIFIED 2020-07-10 09:36 ENCNTR FOR FOLLOW-UP EXAM AFTER [facility] TRTMT FOR MALIGNANT NEOPLASM 2020-07-10 09:36 PERSONAL HISTORY OF MALIGNANT [facility] NEOPLASM OF BREAST 2020-07-10 09:36 PERSONAL HISTORY OF OTHER DRUG Located Within [facility] THERAPY 2020-07-10 09:36 PERSONAL HISTORY OF IRRADIATION [facility] 2020-08-15 11:15 MILD INTERMITTENT ASTHMA, [facility] UNCOMPLICATED 2020-08-15 11:15 OTHER NONSPECIFIC ABNORMAL FINDING [facility] OF LUNG [place] 2021-07-09 11:00 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, UNSPECIFIED 2021-07-09 11:00 ENCNTR FOR FOLLOW-UP EXAM AFTER [facility] TRTMT FOR MALIGNANT NEOPLASM 2021-07-09 11:00 PERSONAL HISTORY OF MALIGNANT [facility] NEOPLASM OF BREAST 2021-07-09 11:00 PERSONAL HISTORY OF OTHER DRUG Located Within [facility] THERAPY 2021-07-09 11:00 PERSONAL HISTORY OF IRRADIATION [facility] Allergies date description facility NO KNOWN ENVIRONMENTAL ALLERGIES [facility] Horse serum [facility] Methyl methaculate (medical Plastic [facility] azithromax [facility] multiple antibiotics [facility] neosporin eye gtts. [facility] sulfites [facility] SULFAMETHOXAZOLE-TRIMETHOPRIM [facility] Metronidazole HCl * [facility] ciprofloxacin HCl * [facility] cetirizine HCl * [facility] cephalexin monohydrate * [facility] Penicillins [facility] Sulfa (Sulfonamide Antibiotics) [facility]illin [facility] cefaclor [facility] doxycycline [facility] erythromycin base [facility] ciprofloxacin [facility] metronidazole [facility] formaldehyde [facility] adhesive [facility] fluconazole [facility] simvastatin [facility] azithromycin [facility] gabapentin [facility] nickel [facility] cefdinir [facility] ALBUTEROL [facility] HYDROXYCHLOROQUINE SULFATE [facility] MORPHINE [facility] SULFAMETHOXAZOLE-TRIMETHOPRIM [facility] NO KNOWN ENVIRONMENTAL ALLERGIES [facility] Horse serum [facility] Methyl methaculate (medical [facility] neosporin eye gtts. [facility] sulfites [facility] NO ALLERGY INFORMATION AVAILABLE [facility] HYDROCODONE [facility] Metronidazole HCl * [facility] cetirizine HCl * [facility] cephalexin monohydrate * [facility] [place] metronidazole [facility] formaldehyde [facility] adhesive [facility] simvastatin [facility] gabapentin [facility] nickel [facility] cefdinir [facility] iodine [facility] LATEX [facility] AMOXICILLIN [facility] ALPRAZOLAM [facility] AZITHROMYCIN [facility] ERYTHROMYCIN [facility] HYDROCODONE [facility]AZOLE [facility] NAPROXEN [facility] PREDNISONE [facility] TETRACYCLINE HCL [facility] SULFAMETHOXAZOLE-TRIMETHOPRIM [facility] ZOFRAN [facility] NO KNOWN ENVIRONMENTAL ALLERGIES [facility] PENICILLINS [facility] SULFA ANTIBIOTICS [facility] Horse serum [facility] Methyl methaculate (medical [facility] azithromax [facility] multiple antibiotics [facility] neosporin eye gtts. [facility] sulfites [facility] SULFAMETHOXAZOLE-TRIMETHOPRIM [facility] NO ALLERGY INFORMATION AVAILABLE [facility] NO KNOWN ALLERGIES [facility]CIN [facility] FL[facility]OXETINE [facility] Metronidazole HCl * [facility] ciprofloxacin HCl * [facility] cetirizine HCl * [facility] cephalexin monohydrate * [facility] [place] Penicillins [facility] Sulfa (Sulfonamide Antibiotics) [facility] [place] [facility]picillin [facility] c[facility]lor [facility]ine [facility] erythromycin [facility] ciprofloxacin [facility] metronidazole [facility] formaldehyde [facility] adhesive [facility] fluconazole [facility] simvastatin [facility] azithromycin [facility] gabapentin [facility] nickel [facility] cefdinir [facility] OTHER [facility] plaster cast material [facility] BEE POLLENS [facility] ASPIRIN [facility] PREDNISONE [facility] ERYTHROMYCIN BASE [facility] SERTRALINE [facility] CYCLOBENZAPRINE [facility] BEE VENOM PROTEIN (HONEY BEE) [facility] QUETIAPINE [facility] No Known Drug Allergies [facility] Results test status date ordered by attending specimen misael e MAMMOGRAM unknown 2020-06-26 unknown unknown unknown 00:00:00 MG_Breast_Screening unknown 2020-06-26 unknown unknown un known 00:00:00 mammogram unknown 2020-06-26 unknown unknown unknown 00:00:00 facility observation status value reference units lab abnor mal line range code notes [facility] MAMMOGRAM unknown BIRADS unknown CPT-7 unk nown unknown [facility] 1 [id number] MG_Breast_Sc unknown BIRADS unknown _[id number] unknown unknown Primary Care reening 1 6-6 [facility] mammogram unknown BIRADS unknown _[id number] unk nown unknown Primary Care 1 [facility] Social History date description facility [id number]
[2020-08-14 09:45] LABS: BASOPHILS % (AUTO) 0.4 %; EOSINOPHILS # (AUTO) 0.2 10^3/uL (0.0-0.7); EOSINOPHILS % (AUTO) 2.7 %; HGB - HEMOGLOBIN 14.2 g/dL (12.0-16.0); LYMPHOCYTES # (AUTO) 2.5 10^3/uL (1.5-3.5); LYMPHOCYTES % (AUTO) 30.3 %; MEAN CORPUSCULAR HEMOGLOBIN 30.8 pg (27.0-31.0); MEAN CORPUSCULAR HGB CONC 33.9 g/dL (32.0-36.0); MEAN CORPUSCULAR VOLUME 90.9 fL (81.0-99.0); MEAN PLATELET VOLUME 9.1 fL (7.9-10.8); MONOCYTES # (AUTO) 0.5 10^3/uL (0.0-1.0); NEUTROPHILS % (AUTO) 60.2 %; PLT - PLATELET COUNT 252 10^3/uL (130-450); RED BLOOD COUNT 4.61 10^6/uL (4.20-5.40); RED CELL DISTRIBUTION WIDTH 12.8 % (12.0-15.0); WHITE BLOOD COUNT 8.2 x10^3/uL (4.8-10.8)
[2020-08-14 10:03] LABS: ALBUMIN/GLOBULIN RATIO 1.3 (1.0-2.2); ALKALINE PHOSPHATASE 69 IU/L (42-121); ALT ALANINE AMINOTRANSFERASE 21 IU/L (10-60); AST ASPARTATE AMINOTRANSFERASE 19 IU/L (10-42); BILIRUBIN,TOTAL 0.6 mg/dL (0.2-1.0); BUN - BLOOD UREA NITROGEN 19 mg/dL (6-20); CALCIUM 9.1 mg/dL (8.5-10.3); CARBON DIOXIDE - CO2 25 mmol/L (21-32); CHLORIDE 105 mmol/L (101-111); CHOL/HDL RATIO 2.4 (<4.4); CHOLESTEROL 146 mg/dL; CREATININE 0.9 mg/dL (0.4-1.0); GLUCOSE 118 mg/dL (70-100); HDL CHOLESTEROL 61 mg/dL; LDL CHOLESTEROL,CALCULATED 46 mg/dL; LDL/HDL RATIO 0.8 (<4.4); SODIUM 140 mmol/L (135-145); TOTAL PROTEIN 7.1 g/dL (6.7-8.2); VLDL CHOLESTEROL 39 mg/dL
[2020-08-14 10:04] LABS: CREATININE,URINE 45.5 mg/dL; MICROALBUM/CREATININE RATIO,UR 4.4 ug/mg (<30.0); MICROALBUMIN,URINE 0.2 mg/dL (0-300.0)
[2020-08-14 12:15] LABS: HEMOGLOBIN A1c% 5.9 % (4.27-6.07)
== END 2020-08-14 09:24 | disposition home or self-care (01) ==
LOC: LAB 09:23
PROVIDERS: ATTEND Internal Medicine
DX: R03.0 Elevated blood-pressure reading, without diagnosis of hypertension (principal); E78.5 Hyperlipidemia, unspecified
CPT/HCPCS: 36415; 80053; 80061; 82043; 82570; 83036; 83721; 84443; 85025

== ENCOUNTER 2020-08-15 11:01 | Outpatient (CLI) | payer MEDICARE, BC ==
--- NOTE | 2020-08-15 11:39 | CT Report ---
PROCEDURE: CHEST WO INDICATIONS: PULMONARY NODULES, ASTHMA TECHNIQUE: Noncontrast 5 mm thick sections acquired from the pulmonary apices to the posterior costophrenic angl es. 7 mm thick coronal and sagittal MIP reformats were then acquired. For radiation dose reduction, the following was used: automated exposure control, adjustment of mA and/or kV according to patient size. COMPARISON: FINDINGS: Image quality: Excellent. Lungs and pleura: No acute air space opacities. Several small scattered pulmonary nodules are again seen, present on prior CT scans, and no new pulmonary nodule has developed. There is mild peribronch ial soft tissue prominence consistent with mild chronic bronchitis. Mucous plugging is seen at the mi d and lower right lung, previously the case. No adenopathy or acute disease is found. No pleural effu sions or pneumothorax. Central and peripheral airways are patent and normal in caliber. Mediastinum: Heart size is normal. No pericardial effusion. No mediastinal adenopathy by size crit eria. Thoracic aorta and central pulmonary arteries are normal in size. Esophagus is normal in maxine sohail. No hiatal hernia. Bones and chest wall: No suspicious bony lesions. No vertebral body compression fractures. No axil masood or supraclavicular adenopathy by size criteria. The thyroid is normal in size. Abdomen: Visualized upper abdominal solid organs and bowel loops appear normal in the absence of con trast. Gallstones within the gallbladder lumen. IMPRESSION: Stable over time, scattered several pulmonary nodules and scattered areas of right-sided mid and lowe r lung mucous plugging within bronchi. Calcified or peripherally calcified gallstones are present wit hin the gallbladder lumen. No acute disease. Reviewed by: Stefano Delgado MD on 08/15/2020 11:38 AM PST Approved by: Stefano Delgado MD on 08/15/2020 11:38 AM PST Station ID: [id number]
== END 2020-08-15 11:02 | disposition home or self-care (01) ==
LOC: DI 11:01
PROVIDERS: ATTEND Internal Medicine Critical Care Medicine
DX: J45.20 Mild intermittent asthma, uncomplicated (principal); R91.8 Other nonspecific abnormal finding of lung field
CPT/HCPCS: 71250

== ENCOUNTER 2020-09-30 14:12 | Outpatient (CLI) | payer MEDICARE, BC ==
--- NOTE | 2020-09-30 16:32 | DEXA Report ---
PROCEDURE: Dexa Spine and/or Hip INDICATIONS: MENOPAUSAL TECHNIQUE: Dual energy x-ray absorptiometry (DXA) was performed on a [email or web address] System. Regions measur ed are the AP Spine, femoral neck, and if needed forearm. COMPARISON: None. FINDINGS: Lumbar Spine: Bone Mineral Density 1.471 g/cm/cm,T score 2.4, compared to 2.8 Left Hip: Bone Mineral Density 0.973 g/cm/cm,T score -0.3, compared to 0.0 Left Femoral Neck: Bone Mineral Density 0.907 g/cm/cm, T score -0.9, compared to -0.6 (T score greater or equal to -1.0: NORMAL) (T score from -1.1 to -2.4: OSTEOPENIA) (T score less than or equal to -2.5 to: OSTEOPOROSIS) Impression: Normal bone mineral density with minimal interval progression compared to prior exam. Patients with diagnosis of osteoporosis or osteopenia should have regular bone mineral density assess ment. For those eligible for Medicare, routine testing is allowed once every 2 years. Testing frequ ency can be increased for patients who have rapidly progressing disease or for those who are receivin g medical therapy to restore bone mass. Reviewed by: Melissa Ayala MD on 09/30/2020 4:31 PM PST Approved by: Melissa Ayala MD on 09/30/2020 4:31 PM PST Station ID: [id number]
== END 2020-09-30 14:13 | disposition home or self-care (01) ==
LOC: DI 14:12
PROVIDERS: ATTEND Internal Medicine
DX: N95.9 Unspecified menopausal and perimenopausal disorder (principal)

== ENCOUNTER 2020-11-19 08:00 | Outpatient (CLI) | payer MEDICARE, BC ==
[2020-11-19 13:26] LABS: BASOPHILS % (AUTO) 0.4 %; EOSINOPHILS # (AUTO) 0.1 10^3/uL (0.0-0.7); EOSINOPHILS % (AUTO) 1.1 %; HCT - HEMATOCRIT 41.4 % (37.0-47.0); HGB - HEMOGLOBIN 13.5 g/dL (12.0-16.0); LYMPHOCYTES # (AUTO) 1.5 10^3/uL (1.5-3.5); LYMPHOCYTES % (AUTO) 15.1 %; MEAN CORPUSCULAR HEMOGLOBIN 30.3 pg (27.0-31.0); MEAN CORPUSCULAR HGB CONC 32.6 g/dL (32.0-36.0); MEAN CORPUSCULAR VOLUME 92.8 fL (81.0-99.0); MEAN PLATELET VOLUME 9.7 fL (7.9-10.8); MONOCYTES # (AUTO) 0.6 10^3/uL (0.0-1.0); MONOCYTES % (AUTO) 6.2 %; NEUTROPHILS # (AUTO) 7.8 10^3/uL (1.5-6.6); NEUTROPHILS % (AUTO) 76.7 %; PLT - PLATELET COUNT 278 10^3/uL (130-450); RED BLOOD COUNT 4.46 10^6/uL (4.20-5.40); RED CELL DISTRIBUTION WIDTH 13.2 % (12.0-15.0); WHITE BLOOD COUNT 10.2 x10^3/uL (4.8-10.8)
[2020-11-19 13:49] LABS: ALBUMIN 4.3 g/dL (3.2-5.5); ALBUMIN/GLOBULIN RATIO 1.4 (1.0-2.2); BILIRUBIN,TOTAL 0.7 mg/dL (0.2-1.0); CALCIUM 9.2 mg/dL (8.5-10.3); CREATININE 0.9 mg/dL (0.4-1.0); POTASSIUM 3.6 mmol/L (3.5-5.0); TOTAL PROTEIN 7.3 g/dL (6.7-8.2)
== END 2020-11-19 23:59 | disposition home or self-care (01) ==
LOC: LAB.N 08:00
PROVIDERS: ATTEND Physician Assistant Medical
DX: K57.92 Diverticulitis of intestine, part unspecified, without perforation or abscess without bleeding (principal)
CPT/HCPCS: 36415; 80053; 83690; 85025

== ENCOUNTER 2020-11-19 15:17 | Outpatient (CLI) | payer MEDICARE, BC ==
[2020-11-19] MEDS ORDERED: IOPAMIDOL-300 100 ML VIAL ONE (15:23)
[2020-11-19] MEDS ORDERED: IOPAMIDOL-300 50 ML VIAL ONE (15:23)
[2020-11-19] MEDS ORDERED: IOPAMIDOL-300 50 ML VIAL PO ONE (16:51)
[2020-11-19] MEDS ORDERED: IOPAMIDOL-300 100 ML VIAL IVP ONE (16:51)
--- NOTE | 2020-11-19 17:15 | CT Report ---
PROCEDURE: Abdomen/Pelvis W INDICATIONS: DIVERTICULITIS OF INTESTINE, WITHOUT BLEEDING CONTRAST: IV CONTRAST: Isovue 300 ml: 100 PO CONTRAST: Isovue 300 ml50 TECHNIQUE: After the administration of weight appropriate dose of intravenous and oral contrast, 5 mm thick sect ions acquired from the diaphragms to the symphysis. 5 mm thick coronal and sagittal reformats were a cquired. For radiation dose reduction, the following was used: automated exposure control, adjustme nt of mA and/or kV according to patient size. COMPARISON: 02/29/[address] dated 08/15/2020 FINDINGS: Image quality: Excellent. ABDOMEN: Lung bases: Stable appearance of small bibasilar pulmonary nodules. Lung bases are otherwise clear. Heart size is normal. Small hiatal hernia. Solid organs: Liver and spleen are normal in size and enhancement. Diffuse hepatic steatosis. Gallb ladder contains multiple gallstones as before. No CT evidence for acute cholecystitis. Biliary syste m is non dilated. Pancreas enhances normally. No adrenal nodules. Kidneys demonstrate normal size and enhancement, without hydronephrosis. Peritoneum and bowel: Scattered colonic diverticulosis predominantly in the descending and sigmoid c olon. There is inflammatory changes involving a segment of proximal sigmoid colon. There is mild circ umferential wall thickening and peridiverticular stranding. No evidence for free air or organized flu id collection. Remainder of the visualized bowel loops demonstrate normal wall thickness and caliber. Nodes and vessels: No retroperitoneal or mesenteric adenopathy by size criteria. Aorta and inferior vena cava are normal in size. Miscellaneous: No ventral hernias. PELVIS: Genitourinary: Urinary bladder wall thickness is normal. Miscellaneous: No inguinal hernias or adenopathy. Bones: No suspicious bony lesions. No acute vertebral body compression fractures. Multilevel lumba r spondylosis. IMPRESSION: 1. Acute uncomplicated diverticulitis involving a segment of proximal sigmoid colon. No evidence for perforation or abscess formation. 2. Hepatic steatosis. 3. Cholelithiasis without CT evidence for acute cholecystitis. 4. Small hiatal hernia. 5. Stable appearance of bibasilar pulmonary nodules. 6. Multilevel lumbar spondylosis. Reviewed by: Jovanny León MD on 11/19/2020 4:14 PM AKDT Approved by: Jovanny León MD on 11/19/2020 4:14 PM AKDT Station ID: [id number]
== END 2020-11-19 15:18 | disposition home or self-care (01) ==
LOC: DI 15:17
PROVIDERS: ATTEND Physician Assistant Medical
DX: K57.32 Diverticulitis of large intestine without perforation or abscess without bleeding (principal); K76.0 Fatty (change of) liver, not elsewhere classified; K80.20 Calculus of gallbladder without cholecystitis without obstruction; K44.9 Diaphragmatic hernia without obstruction or gangrene; R91.8 Other nonspecific abnormal finding of lung field; M47.816 Spondylosis without myelopathy or radiculopathy, lumbar region; K57.92 Diverticulitis of intestine, part unspecified, without perforation or abscess without bleeding
CPT/HCPCS: 74177; Q9967; 36415; 80053; 83690; 85025

== ENCOUNTER 2021-07-01 13:22 | Outpatient (CLI) | payer MEDICARE, BC ==
--- NOTE | 2021-07-02 14:59 | Mammography Report ---
BILATERAL DIGITAL SCREENING MAMMOGRAM 3D/2D: 07/01/2021 CLINICAL: Routine screening. Personal history of right breast cancer. Comparison is made to exams dated: 06/26/2020 mammogram, 06/09/2019 mammogram, 06/08/2018 mammogram, 1 08/07/2016 mammogram, 06/04/2016 mammogram, and 05/31/2015 mammogram - [facility]. Th e tissue of both breasts is predominantly fatty. There are benign post operative findings in the right breast. No significant masses, calcifications, or other findings are seen in either breast. There has been no significant interval change. IMPRESSION: BENIGN There is no mammographic evidence of malignancy. A 1 year screening mammogram is recommended. This exam was interpreted at Station ID: [id number]. NOTE: For mammograms, a report in lay terms will be sent to the patient. Approximately 15% of breast malignancies will not be visualized mammographically. In the management of a palpable breast mass, a negative mammogram must not discourage biopsy of a clinically suspicious lesion. Electronically Signed By: Mario Rivero M.D. [facility] [place]:07/02/2021 08:10:38 ACR BI-RADS Category 2: Benign Finding(s) 3342F PARENCHYMAL PATTERN: (F) - The breast(s) demonstrate(s) diffuse fatty replacement. BI-RADS CATEGORY: (2) - 2 RECOMMENDATION: (ANNUAL) - Recommend routine annual screening mammography. 20220702 1 year screening LATERALITY: (B)
== END 2021-07-01 13:23 | disposition home or self-care (01) ==
LOC: DI 13:22
DX: Z12.31 Encounter for screening mammogram for malignant neoplasm of breast (principal); Z85.3 Personal history of malignant neoplasm of breast

== ENCOUNTER 2021-11-13 08:11 | Outpatient (CLI) | payer MEDICARE, BC ==
[2021-11-13 08:27] LABS: BASOPHILS % (AUTO) 0.5 %; EOSINOPHILS # (AUTO) 0.3 10^3/uL (0.0-0.7); HCT - HEMATOCRIT 42.8 % (37.0-47.0); HGB - HEMOGLOBIN 14.4 g/dL (12.0-16.0); LYMPHOCYTES # (AUTO) 2.9 10^3/uL (1.5-3.5); LYMPHOCYTES % (AUTO) 35.8 %; MEAN CORPUSCULAR HEMOGLOBIN 29.9 pg (27.0-31.0); MEAN CORPUSCULAR HGB CONC 33.6 g/dL (32.0-36.0); MEAN PLATELET VOLUME 9.1 fL (7.9-10.8); MONOCYTES # (AUTO) 0.6 10^3/uL (0.0-1.0); MONOCYTES % (AUTO) 7.2 %; NEUTROPHILS # (AUTO) 4.4 10^3/uL (1.5-6.6); NEUTROPHILS % (AUTO) 53.1 %; PLT - PLATELET COUNT 277 10^3/uL (130-450); RED BLOOD COUNT 4.81 10^6/uL (4.20-5.40); RED CELL DISTRIBUTION WIDTH 13.2 % (12.0-15.0); WHITE BLOOD COUNT 8.2 x10^3/uL (4.8-10.8)
[2021-11-13 08:45] LABS: ALBUMIN/GLOBULIN RATIO 1.3 (1.0-2.2); ALKALINE PHOSPHATASE 58 IU/L (42-121); ALT ALANINE AMINOTRANSFERASE 32 IU/L (10-60); AST ASPARTATE AMINOTRANSFERASE 22 IU/L (10-42); BILIRUBIN,TOTAL 0.7 mg/dL (0.2-1.0); BUN - BLOOD UREA NITROGEN 17 mg/dL (6-20); CALCIUM 8.9 mg/dL (8.5-10.3); CARBON DIOXIDE - CO2 24 mmol/L (21-32); CHLORIDE 102 mmol/L (101-111); CHOL/HDL RATIO 2.6 (<4.4); CHOLESTEROL 165 mg/dL; CREATININE 0.9 mg/dL (0.4-1.0); GFR - MDRD 61 (>89); GLUCOSE 134 mg/dL (70-100); HDL CHOLESTEROL 63 mg/dL; LDL CHOLESTEROL,CALCULATED 66 mg/dL; POTASSIUM 3.8 mmol/L (3.5-5.0); SODIUM 137 mmol/L (135-145); TOTAL PROTEIN 7.1 g/dL (6.7-8.2); TRIGLYCERIDES 181 mg/dL; VLDL CHOLESTEROL 36 mg/dL
[2021-11-13 08:56] LABS: THYROID STIMULATING HORMONE 0.08 uIU/mL (0.34-5.60)
[2021-11-13 10:24] LABS: FREE T4 (FREE THYROXINE) 1.37 ng/dL (0.58-1.64)
== END 2021-11-13 08:12 | disposition home or self-care (01) ==
LOC: LAB 08:11
PROVIDERS: ATTEND Internal Medicine
DX: E78.5 Hyperlipidemia, unspecified (principal); Z87.19 Personal history of other diseases of the digestive system; R73.03 Prediabetes; E03.9 Hypothyroidism, unspecified; I47.1 Supraventricular tachycardia
CPT/HCPCS: 36415; 80053; 80061; 81599; 83036; 83721; 84439; 84443; 85025

== ENCOUNTER 2021-11-30 16:40 | Emergency (ER) | payer MEDICARE, BC ==
[2021-11-30 17:02] LABS: BASOPHILS % (AUTO) 0.2 %; EOSINOPHILS # (AUTO) 0.1 10^3/uL (0.0-0.7); EOSINOPHILS % (AUTO) 0.6 %; HCT - HEMATOCRIT 42.5 % (37.0-47.0); HGB - HEMOGLOBIN 14.3 g/dL (12.0-16.0); LYMPHOCYTES # (AUTO) 2.3 10^3/uL (1.5-3.5); LYMPHOCYTES % (AUTO) 16.4 %; MEAN CORPUSCULAR HEMOGLOBIN 29.8 pg (27.0-31.0); MEAN CORPUSCULAR HGB CONC 33.6 g/dL (32.0-36.0); MEAN CORPUSCULAR VOLUME 88.5 fL (81.0-99.0); MEAN PLATELET VOLUME 9.2 fL (7.9-10.8); MONOCYTES # (AUTO) 1.2 10^3/uL (0.0-1.0); MONOCYTES % (AUTO) 8.6 %; NEUTROPHILS # (AUTO) 10.4 10^3/uL (1.5-6.6); NEUTROPHILS % (AUTO) 73.9 %; PLT - PLATELET COUNT 282 10^3/uL (130-450); RED CELL DISTRIBUTION WIDTH 13.2 % (12.0-15.0); WHITE BLOOD COUNT 14.1 x10^3/uL (4.8-10.8)
[2021-11-30 17:16] LABS: ALBUMIN 4.2 g/dL (3.2-5.5); ALBUMIN/GLOBULIN RATIO 1.3 (1.0-2.2); BILIRUBIN,TOTAL 0.6 mg/dL (0.2-1.0); CREATININE 0.8 mg/dL (0.4-1.0); POTASSIUM 3.5 mmol/L (3.5-5.0); TOTAL PROTEIN 7.5 g/dL (6.7-8.2)
[2021-11-30 17:25] LABS: BILIRUBIN,URINE NEGATIVE (NEGATIVE); GLUCOSE, URINE (UA) NEGATIVE (NEGATIVE); KETONES,URINE (UA) NEGATIVE (NEGATIVE); LEUKOCYTE ESTERASE, URINE NEGATIVE (NEGATIVE); NITRITE,URINE NEGATIVE (NEGATIVE); OCCULT BLOOD,URINE NEGATIVE (NEGATIVE); PROTEIN,URINE NEGATIVE (NEGATIVE); UROBILINOGEN,URINE 0.2 (NORMAL) E.U./dL (NORMAL)
[2021-11-30 17:27] LABS: CLARITY,URINE CLEAR (CLEAR)
[2021-11-30] MEDS ORDERED: AMOX/CLAV 875 MG/125 MG TABLET PO STA (17:34)
--- NOTE | 2021-11-30 17:41 | ED Physician Documentation ---
History of Present Illness - Stated complaint Stated Complaint: CHILLS,ABD PAIN, BLOOD IN STOOL - Chief complaint Chief Complaint: Abd Pain - Additonal information Additional information: 76-year-old female who has a history of diverticulitis presents emergency department with 3 days of left lower quadrant focal abdominal pain. No fevers but she does endorse some chills and myalgias. She is continuing to have bowel movements that are mildly mucoid and sometimes bloody. Last treated for diverticulitis in October 2020. She denies any complicating features such as perforation or abscess formation. She states that her last episode felt much more painful and severe than the presentation today. Review of Systems Constitutional: denies: Fever, Chills Eyes: reports: Reviewed and negative Throat: reports: Reviewed and negative Cardiac: reports: Reviewed and negative Respiratory: reports: Reviewed and negative GI: reports: Abdominal Pain, Bloody / black stool. 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 - Present Medications Home Medications: Ambulatory Orders Medication Instructions Recorded Confirmed Albuterol Sulfate [Proair Hfa] 2 inh IH Q4HR PRN 04/07/13 07/10/20 Fluticasone [Flonase] 2 sprays ANDREA DAILY PRN 04/07/13 07/10/20 Levothyroxine Sodium [Synthroid] 0.112 mg PO DAILY 04/07/13 07/10/20 Loratadine [Claritin] 10 mg ORAL DAILY 04/07/13 07/10/20 Multivitamin [Multi-Day Vitamins] 1 tab ORAL DAILY 04/07/13 07/10/20 Metoprolol Tartrate 25 mg PO BID 04/17/15 07/10/20 Montelukast [Singulair] 10 mg PO QPM 04/17/15 07/10/20 Cholecalciferol (Vitamin D3) 2,000 unit PO DAILY 04/19/18 07/10/20 [Vitamin D] Rosuvastatin Calcium 5 mg PO DAILY 04/19/18 07/10/20 Qvar Inhaler 2 inh INH BID 06/15/18 07/10/20 Gabapentin [Neurontin] 300 mg PO HS 30 Days #60 07/09/21 Gabapentin [Neurontin] 300 mg PO HS 30 Days #60 tab 07/09/21 Amox/Clav 875/125 [Augmentin 1 tablet PO BID 10 Days #20 tablet 11/30/21 875/125 Tab] - Allergies Allergies/Adverse Reactions: Allergies Allergy/AdvReac Type Severity Reaction Status Date / Time adhesive Allergy Rash Verified 11/30/21 16:44 formaldehyde Allergy Rash Verified 11/30/21 16:44 nickel [Nickel] Allergy Rash Verified 11/30/21 16:44 cephalexin monohydrate * AdvReac Mild neuropathy Verified 11/30/21 16:44 [From Keflex] pain metronidazole [From Flagyl] AdvReac Mild neuropathy Verified 11/30/21 16:44 pain Metronidazole HCl * AdvReac Mild neuropathy Verified 11/30/21 16:44 [From Flagyl] pain cefdinir AdvReac Hives Verified 11/30/21 16:44 cetirizine HCl * AdvReac Hallucinati Verified 11/30/21 16:44 [From Zyrtec] ons gabapentin AdvReac Unknown Verified 11/30/21 16:44 simvastatin [From Zocor] AdvReac Cramps Verified 11/30/21 16:44 Horse serum Allergy Unknown unknown Uncoded 11/30/21 16:44 Methyl methaculate (medical Allergy Unknown unknown Uncoded 11/30/21 16:44 Plastic neosporin eye gtts. Allergy Unknown unknown Uncoded 11/30/21 16:44 sulfites AdvReac Respiratory Uncoded 11/30/21 16:44 - Social History Does the pt smoke?: No Smoking Status: Never smoker Does the pt drink ETOH?: No Does the pt have substance abuse?: No - Immunizations Immunizations are current?: Yes - POLST Patient has POLST: No PD ED PE NORMAL - General General: Alert and oriented X 3, No acute distress, Well developed/nourished - HEENT HEENT: Atraumatic, Ears normal, Moist mucous membranes - Neck Neck: Supple, no meningeal sign, No adenopathy - Cardiac Cardiac: RRR, No murmur, No gallop - Respiratory Respiratory: No respiratory distress, Clear bilaterally - Abdomen Abdomen: Normal bowel sounds, Soft. No: Non tender (Focal tenderness of the left lower quadrant without guarding or rebound. No flank or CVA tenderness.) - Back Back: No CVA TTP, No spinal TTP - Derm Derm: Normal color, No rash - Extremities Extremities: No deformity, No tenderness to palpate - Neuro Neuro: Alert and oriented X 3, rest room matron 2-12 intact Eye Opening: Spontaneous Motor: Obeys Commands Verbal: Oriented GCS Score: 15 Results - Vitals Vitals: Vital Signs - 24 hr 11/30/21 16:44 Temperature 36.5 C Heart Rate 95 Respiratory 16 Rate Blood Pressure 149/73 H O2 Saturation 97 Oxygen O2 Source Room air - Labs Labs: Laboratory Tests 11/30/21 11/30/21 11/30/21 16:58 16:58 17:20 WBC 14.1 H RBC 4.80 Hgb 14.3 Hct 42.5 MCV 88.5 MCH 29.8 MCHC 33.6 RDW 13.2 Plt Count 282 MPV 9.2 Neut # (Auto) 10.4 H Lymph # (Auto) 2.3 Smith # (Auto) 1.2 H Eos # (Auto) 0.1 Baso # (Auto) 0.0 Absolute Nucleated RBC 0.00 Nucleated RBC % 0.0 Sodium 137 Potassium 3.5 Chloride 101 Carbon Dioxide 24 Anion Gap 12.0 BUN 13 Creatinine 0.8 Estimated GFR (MDRD) 70 L Glucose 101 H Calcium 9.0 Total Bilirubin 0.6 AST 16 ALT 20 Alkaline Phosphatase 60 Total Protein 7.5 Albumin 4.2 Globulin 3.3 Albumin/Globulin Ratio 1.3 Lipase 25 Urine Color YELLOW Urine Clarity CLEAR Urine pH 6.0 Ur Specific [place] 1.010 Urine Protein NEGATIVE Urine Glucose (UA) NEGATIVE Urine Ketones NEGATIVE Urine Occult Blood NEGATIVE Urine Nitrite NEGATIVE Urine Bilirubin NEGATIVE Urine Urobilinogen 0.2 (NORMAL) Ur Leukocyte Esterase NEGATIVE Ur Microscopic Review NOT INDICATED Urine Culture Comments NOT INDICATED PD MEDICAL DECISION MAKING - ED course Complexity details: reviewed results, re-evaluated patient, considered di fferential, d/w patient ED course: 76-year-old female presents emergency department with 3 days of focal left lower quadrant abdominal pain. No guarding rebound or peritoneal signs. Screening labs show a mild leukocytosis. She is also reported some mildly bloody and mucoid stools. She does have a history of diverticulitis and this feels similar to previous presentations though she admits that its not as bad as she has had in the past. She has never had any complicating features with diverticulitis such as abscess or perforation. I did offer CT imaging but at this point the patient feels comfortable with trialing antibiotics. If symptoms not markedly better in 48 to 72 hours or worsening before then she will return immediately to the ER. Departure - Departure Disposition: 01 Home, Self Care Clinical Impression: Diverticulitis Condition: Stable Record reviewed to determine appropriate education?: Yes Instructions: Diverticulitis Dc Prescriptions: Amox/Clav 875/125 [Augmentin 875/125 Tab] 1 tablet PO BID 10 Days #20 tablet Comments: Cindy you are seen today for 3 days of pain in the left lower quadrant of your abdomen. You are also reporting some mildly mucoid and bloody stools. You have a history of diverticulitis and this feels similar to previous presentations. At this time we are starting you on some antibiotics to treat diverticulitis. Over the next 24 hours I recommend that you have a clear liquid diet. If your pain and symptoms are improving after 24 hours you can slowly advance your diet. With the antibiotics I would expect markedly improved pain and symptoms over the next 48 to 72 hours. If not better, you develop fevers, have suddenly worse pain or any other concerns and please return immediately to the ER. I do recommend you follow-up closely with your primary care doctor.
[2021-11-30 17:55] VITALS: BP 144/74
== END 2021-11-30 17:56 | disposition home or self-care (01) ==
LOC: ED 16:40
DX: K57.92 Diverticulitis of intestine, part unspecified, without perforation or abscess without bleeding (principal); I10 Essential (primary) hypertension
CPT/HCPCS: 36415; 80053; 81003; 83690; 85025; 99283; 99284; A9270; 81001; 87086

== ENCOUNTER 2022-06-01 09:14 | Outpatient (CLI) | payer MEDICARE, BC ==
[2022-06-01 09:49] LABS: BASOPHILS % (AUTO) 0.4 %; EOSINOPHILS # (AUTO) 0.2 10^3/uL (0.0-0.7); EOSINOPHILS % (AUTO) 2.5 %; HCT - HEMATOCRIT 41.9 % (37.0-47.0); HGB - HEMOGLOBIN 13.7 g/dL (12.0-16.0); LYMPHOCYTES # (AUTO) 2.1 10^3/uL (1.5-3.5); LYMPHOCYTES % (AUTO) 27.6 %; MEAN CORPUSCULAR HEMOGLOBIN 30.2 pg (27.0-31.0); MEAN CORPUSCULAR HGB CONC 32.7 g/dL (32.0-36.0); MEAN CORPUSCULAR VOLUME 92.3 fL (81.0-99.0); MEAN PLATELET VOLUME 9.4 fL (7.9-10.8); MONOCYTES # (AUTO) 0.5 10^3/uL (0.0-1.0); MONOCYTES % (AUTO) 7.1 %; NEUTROPHILS # (AUTO) 4.7 10^3/uL (1.5-6.6); NEUTROPHILS % (AUTO) 61.9 %; PLT - PLATELET COUNT 261 10^3/uL (130-450); RED BLOOD COUNT 4.54 10^6/uL (4.20-5.40); RED CELL DISTRIBUTION WIDTH 13.6 % (12.0-15.0); WHITE BLOOD COUNT 7.7 x10^3/uL (4.8-10.8)
[2022-06-01 10:01] LABS: CREATININE,URINE 113.2 mg/dL; MICROALBUM/CREATININE RATIO,UR 4.4 ug/mg (<30.0); MICROALBUMIN,URINE 0.5 mg/dL (0-300.0)
[2022-06-01 10:23] LABS: THYROID STIMULATING HORMONE 0.46 uIU/mL (0.34-5.60)
[2022-06-01 10:25] LABS: FREE T4 (FREE THYROXINE) 1.12 ng/dL (0.58-1.64)
[2022-06-01 10:40] LABS: THYROID STIMULATING HORMONE 0.46 uIU/mL (0.34-5.60)
[2022-06-01 10:54] LABS: ALBUMIN 4.3 g/dL (3.2-5.5); ALBUMIN/GLOBULIN RATIO 1.7 (1.0-2.2); ALKALINE PHOSPHATASE 62 IU/L (42-121); ALT ALANINE AMINOTRANSFERASE 33 IU/L (10-60); AST ASPARTATE AMINOTRANSFERASE 31 IU/L (10-42); BILIRUBIN,TOTAL 3.1 mg/dL (0.2-1.0); BUN - BLOOD UREA NITROGEN 28 mg/dL (6-20); CALCIUM 9.4 mg/dL (8.5-10.3); CARBON DIOXIDE - CO2 29 mmol/L (21-32); CHLORIDE 105 mmol/L (101-111); CHOL/HDL RATIO 2.3 (<4.4); CHOLESTEROL 113 mg/dL; GFR - MDRD 54 (>89); GLUCOSE 99 mg/dL (70-100); HDL CHOLESTEROL 50 mg/dL; POTASSIUM 3.9 mmol/L (3.5-5.0); SODIUM 142 mmol/L (135-145); TOTAL PROTEIN 6.8 g/dL (6.7-8.2); TRIGLYCERIDES 28 mg/dL
[2022-06-01 11:36] LABS: ESTIMATED AVERAGE GLUCOSE 128 mg/dL (70-100); HEMOGLOBIN A1c% 6.1 % (4.27-6.07)
== END 2022-06-01 09:15 | disposition home or self-care (01) ==
LOC: LAB 09:14
PROVIDERS: ATTEND Internal Medicine
DX: C50.911 Malignant neoplasm of unspecified site of right female breast (principal); Z17.0 Estrogen receptor positive status [ER+]; E78.5 Hyperlipidemia, unspecified; R73.03 Prediabetes; E03.9 Hypothyroidism, unspecified
CPT/HCPCS: 36415; 80053; 80061; 82043; 82570; 83036; 83721; 84439; 84443; 85025

== ENCOUNTER 2022-11-19 10:04 | Outpatient (CLI) | payer MEDICARE, BC ==
--- NOTE | 2022-11-20 10:35 | Mammography Report ---
BILATERAL DIGITAL SCREENING MAMMOGRAM 3D/2D: 11/19/2022 CLINICAL: Routine screening. Personal history of right breast cancer. Comparison is made to exams dated: 07/01/2021 mammogram, 06/09/2019 mammogram, 06/26/2020 mammogram, 06/08/2018 mammogram, 06/07/2017 mammogram, and 06/04/2016 mammogram - [facility]. Both breasts are almost entirely fatty (category a/<25% glandular tissue). There is a benign calcification in the right breast. There also are benign post operative findings i n the right breast. No significant masses, calcifications, or other findings are seen in either breast. There has been no significant interval change. IMPRESSION: BENIGN There is no mammographic evidence of malignancy. A 1 year screening mammogram is recommended. This exam was interpreted at Station ID: [id number]. NOTE: For mammograms, a report in lay terms will be sent to the patient. Approximately 15% of breast malignancies will not be visualized mammographically. In the management of a palpable breast mass, a negative mammogram must not discourage biopsy of a clinically suspicious lesion. Electronically Signed By: Phylicia hahn/edmundo:11/19/2022 16:14:34 letter sent: No_Letter ACR BI-RADS Category 2: Benign Finding(s) 3342F PARENCHYMAL PATTERN: (F) - The breast(s) demonstrate(s) diffuse fatty replacement. BI-RADS CATEGORY: (2) - 2 Mammogram [id number] 1 year screening LATERALITY: (B)
== END 2022-11-19 10:05 | disposition home or self-care (01) ==
LOC: DI 10:04
DX: Z12.31 Encounter for screening mammogram for malignant neoplasm of breast (principal); Z85.3 Personal history of malignant neoplasm of breast

== ENCOUNTER 2022-11-20 08:55 | Outpatient (CLI) | payer MEDICARE, BC ==
[2022-11-20 09:14] LABS: BASOPHILS % (AUTO) 0.4 %; EOSINOPHILS # (AUTO) 0.2 10^3/uL (0.0-0.7); EOSINOPHILS % (AUTO) 2.4 %; HCT - HEMATOCRIT 42.9 % (37.0-47.0); LYMPHOCYTES # (AUTO) 2.3 10^3/uL (1.5-3.5); LYMPHOCYTES % (AUTO) 29.4 %; MEAN CORPUSCULAR HEMOGLOBIN 29.7 pg (27.0-31.0); MEAN CORPUSCULAR HGB CONC 32.6 g/dL (32.0-36.0); MEAN CORPUSCULAR VOLUME 91.1 fL (81.0-99.0); MEAN PLATELET VOLUME 9.1 fL (7.9-10.8); MONOCYTES # (AUTO) 0.6 10^3/uL (0.0-1.0); MONOCYTES % (AUTO) 7.6 %; NEUTROPHILS # (AUTO) 4.6 10^3/uL (1.5-6.6); NEUTROPHILS % (AUTO) 59.7 %; PLT - PLATELET COUNT 302 10^3/uL (130-450); RED BLOOD COUNT 4.71 10^6/uL (4.20-5.40); WHITE BLOOD COUNT 7.8 x10^3/uL (4.8-10.8)
[2022-11-20 09:31] LABS: ALBUMIN/GLOBULIN RATIO 1.4 (1.0-2.2); ALKALINE PHOSPHATASE 57 IU/L (42-121); ALT ALANINE AMINOTRANSFERASE 21 IU/L (10-60); AST ASPARTATE AMINOTRANSFERASE 19 IU/L (10-42); BILIRUBIN,TOTAL 0.8 mg/dL (0.2-1.0); BUN - BLOOD UREA NITROGEN 18 mg/dL (6-20); CALCIUM 8.7 mg/dL (8.5-10.3); CARBON DIOXIDE - CO2 26 mmol/L (21-32); CHLORIDE 105 mmol/L (101-111); CHOL/HDL RATIO 2.3 (<4.4); CHOLESTEROL 122 mg/dL; GFR - MDRD 54 (>89); GLUCOSE 134 mg/dL (70-100); HDL CHOLESTEROL 54 mg/dL; LDL CHOLESTEROL,CALCULATED 40 mg/dL; LDL/HDL RATIO 0.7 (<4.4); POTASSIUM 3.9 mmol/L (3.5-5.0); SODIUM 140 mmol/L (135-145); TOTAL PROTEIN 6.8 g/dL (6.7-8.2); TRIGLYCERIDES 140 mg/dL; VLDL CHOLESTEROL 28 mg/dL
[2022-11-20 09:33] LABS: CREATININE,URINE 172.9 mg/dL; MICROALBUM/CREATININE RATIO,UR 6.9 ug/mg (<30.0); MICROALBUMIN,URINE 1.2 mg/dL (0-300.0)
[2022-11-20 09:42] LABS: THYROID STIMULATING HORMONE 0.28 uIU/mL (0.34-5.60)
[2022-11-20 10:16] LABS: FREE T4 (FREE THYROXINE) 1.36 ng/dL (0.58-1.64)
[2022-11-20 12:19] LABS: ESTIMATED AVERAGE GLUCOSE 131 mg/dL (70-100); HEMOGLOBIN A1c% 6.2 % (4.27-6.07)
== END 2022-11-20 08:56 | disposition home or self-care (01) ==
LOC: LAB 08:55
PROVIDERS: ATTEND Internal Medicine
DX: C50.911 Malignant neoplasm of unspecified site of right female breast (principal); Z17.0 Estrogen receptor positive status [ER+]; E78.5 Hyperlipidemia, unspecified; R73.03 Prediabetes; E03.9 Hypothyroidism, unspecified
CPT/HCPCS: 36415; 80053; 80061; 82043; 82570; 83036; 83721; 84439; 84443; 85025

== ENCOUNTER 2022-11-28 05:11 | Emergency (ER) | payer MEDICARE, BC ==
[2022-11-28] MEDS: CYCLOBENZAPRINE 10 MG TABLET PO STA (07:25)
[2022-11-28] MEDS: oxyCODONE 5 MG TABLET PO STA (07:25)
[2022-11-28] MEDS: SODIUM CHLORIDE 0.9% 1,000 ML IV STA (07:40)
[2022-11-28 07:41] LABS: BASOPHILS % (AUTO) 0.2 %; EOSINOPHILS % (AUTO) 0.2 %; HCT - HEMATOCRIT 42.6 % (37.0-47.0); LYMPHOCYTES # (AUTO) 1.3 10^3/uL (1.5-3.5); LYMPHOCYTES % (AUTO) 10.3 %; MEAN CORPUSCULAR HEMOGLOBIN 30.1 pg (27.0-31.0); MEAN CORPUSCULAR HGB CONC 32.9 g/dL (32.0-36.0); MEAN CORPUSCULAR VOLUME 91.6 fL (81.0-99.0); MEAN PLATELET VOLUME 9.7 fL (7.9-10.8); MONOCYTES # (AUTO) 0.7 10^3/uL (0.0-1.0); MONOCYTES % (AUTO) 5.9 %; NEUTROPHILS % (AUTO) 82.9 %; PLT - PLATELET COUNT 270 10^3/uL (130-450); RED BLOOD COUNT 4.65 10^6/uL (4.20-5.40); WHITE BLOOD COUNT 12.1 x10^3/uL (4.8-10.8)
[2022-11-28 08:06] LABS: ALBUMIN 4.2 g/dL (3.2-5.5); ALBUMIN/GLOBULIN RATIO 1.4 (1.0-2.2); BILIRUBIN,TOTAL 0.5 mg/dL (0.2-1.0); CALCIUM 9.3 mg/dL (8.5-10.3); CREATININE 0.9 mg/dL (0.4-1.0); TOTAL PROTEIN 7.3 g/dL (6.7-8.2)
--- NOTE | 2022-11-28 08:32 | ED Physician Documentation ---
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 Patient and her were looking at homes and were getting in and out of a vehicle that was not theirs. Patient was also going up and down stairs more which she states she usually uses her arms to help her.The pain started later that day and she reports it as a tightness feeling in both biceps. She reports having pain with range of motion including having difficulty in fully relaxing her arms. The pain does not radiate elsewhere. She has a history of chronic neck and back pain but states that her neck has not been bothering her. She denies any recent falls. She denies numbness in her arms. She denies headache. She does not take a blood thinner. She denies recent procedures or injections into her neck or back. She denies chest pain, difficulty breathing, abdominal pain.She has been using [id number] anti-inflammatories without much improvement. Review of Systems Constitutional: denies: Fever Cardiac: denies: Chest pain / pressure Respiratory: denies: Dyspnea GI: denies: Abdominal Pain Musculoskeletal: reports: Extremity pain. 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 - Present Medications Home Medications: Ambulatory Orders Medication Instructions Recorded Confirmed Albuterol Sulfate [Proair Hfa] 2 inh IH Q4HR PRN 04/07/13 11/28/22 Fluticasone [Flonase] 2 sprays ANDREA DAILY PRN 04/07/13 11/28/22 Levothyroxine Sodium [Synthroid] 0.112 mg PO DAILY 04/07/13 11/28/22 Loratadine [Claritin] 10 mg ORAL DAILY 04/07/13 11/28/22 Multivitamin [Multi-Day Vitamins] 1 tab ORAL DAILY 04/07/13 11/28/22 Metoprolol Tartrate 25 mg PO BID 04/17/15 11/28/22 Montelukast [Singulair] 10 mg PO QPM 04/17/15 11/28/22 Cholecalciferol (Vitamin D3) 2,000 unit PO DAILY 04/19/18 11/28/22 [Vitamin D] Rosuvastatin Calcium 5 mg PO DAILY 04/19/18 11/28/22 Qvar Inhaler 2 inh INH BID 06/15/18 11/28/22 Cyclobenzaprine [Flexeril] 10 mg PO TID PRN #15 tablet 11/28/22 Oxycodone HCl/Acetaminophen 1 each PO Q6H PRN #14 tablet 11/28/22 [Percocet 5-325 mg Tablet] - Allergies Allergies/Adverse Reactions: Allergies Allergy/AdvReac Type Severity Reaction Status Date / Time adhesive Allergy Rash Verified 11/28/22 05:27 formaldehyde Allergy Rash Verified 11/28/22 05:27 nickel [Nickel] Allergy Rash Verified 11/28/22 05:27 cephalexin monohydrate * AdvReac Mild neuropathy Verified 11/28/22 05:27 [From Keflex] pain metronidazole [From Flagyl] AdvReac Mild neuropathy Verified 11/28/22 05:27 pain Metronidazole HCl * AdvReac Mild neuropathy Verified 11/28/22 05:27 [From Flagyl] pain cefdinir AdvReac Hives Verified 11/28/22 05:27 cetirizine HCl * AdvReac Hallucinati Verified 11/28/22 05:27 [From Zyrtec] ons gabapentin AdvReac Unknown Verified 11/28/22 05:27 simvastatin [From Zocor] AdvReac Cramps Verified 11/28/22 05:27 Horse serum Allergy Unknown unknown Uncoded 11/30/21 16:44 Methyl methaculate (medical Allergy Unknown unknown Uncoded 11/30/21 16:44 Plastic neosporin eye gtts. Allergy Unknown unknown Uncoded 11/30/21 16:44 sulfites AdvReac Respiratory Uncoded 11/30/21 16:44 - Social History Does the pt smoke?: No Smoking Status: Never smoker Does the pt drink ETOH?: No Does the pt have substance abuse?: No - Immunizations Immunizations are current?: Yes - POLST Patient has POLST: No PD ED PE NORMAL - General General: Alert and oriented X 3, No acute distress, Well developed/nourished - HEENT HEENT: Atraumatic, PERRL, EOMI - Neck Neck: Supple, no meningeal sign, No bony TTP - Cardiac Cardiac: RRR, No murmur - Respiratory Respiratory: No respiratory distress, Clear bilaterally - Abdomen Abdomen: Soft, Non tender - Derm Derm: Warm and dry - Extremities Extremities: No deformity, Other (Tenderness to the bilateral biceps, difficulty in fully extending both arms at the elbow, normal flexion, 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 She does have pain on range of motion with difficulties in fully extending at bilateral elbows. There is no bony tenderness.CBC, chemistry and CK were obtained without any significant findings. Patient received a dose of Flexeril, pain medicine with significant improvement in her symptoms and was able to fully extend Her arms. Her strength and sensation are preserved Her exam does not suggest cord compression. She has good distal pulses and extremities are warm and well-perfused. She has no cervical spine tenderness. She is ambulatory to the bathroom. Suspect that her symptoms are likely related to muscle strain from Recent overuse. Patient is comfortable with treatment plan and is advised on need for close follow-up with PCP. She is also advised on concerning symptoms to return for. Results - Vitals Vitals: Vital Signs - 24 hr 11/28/22 11/28/22 05:23 08:52 Temperature 35.7 C L 36.5 C Heart Rate 85 78 Respiratory 19 16 Rate Blood Pressure 152/84 H 139/74 H O2 Saturation 97 98 Oxygen O2 Source Room air - Labs Labs: Laboratory Tests 11/28/22 11/28/22 07:36 07:36 WBC 12.1 H RBC 4.65 Hgb 14.0 Hct 42.6 MCV 91.6 MCH 30.1 MCHC 32.9 RDW 13.0 Plt Count 270 MPV 9.7 Neut # (Auto) 10.0 H Lymph # (Auto) 1.3 L Rains # (Auto) 0.7 Eos # (Auto) 0.0 Baso # (Auto) 0.0 Absolute Nucleated RBC 0.00 Nucleated RBC % 0.0 Sodium 137 Potassium 4.0 Chloride 101 Carbon Dioxide 26 Anion Gap 10.0 BUN 23 H Creatinine 0.9 Estimated GFR (MDRD) 61 L Glucose 151 H Calcium 9.3 Total Bilirubin 0.5 AST 17 ALT 18 Alkaline Phosphatase 52 Total Creatine Kinase 48 Total Protein 7.3 Albumin 4.2 Globulin 3.1 Albumin/Globulin Ratio 1.4 PD Medical Decision Making - ED course ED course: 830 - Feeling better. Able to ambulate to the bathroom and use the bathroom on her own without issue. She states the pain is much improved and she is also able to range of motion in her arms Including now able to fully extend her arms Departure - Departure Disposition: Home, Self Care Clinical Impression: Bilateral arm pain, Muscle spasm Condition: Stable Instructions: ED Strain Muscle Ext Prescriptions: Cyclobenzaprine [Flexeril] 10 mg PO TID PRN #15 tablet PRN Reason: Spasms Oxycodone HCl/Acetaminophen [Percocet 5-325 mg Tablet] 1 each PO Q6H PRN #14 tablet PRN Reason: pain Comments: Your symptoms are likely related to overuse of your arms in recent days. I have started you on a muscle relaxer which should help with your symptoms as well as a small amount of pain medicine. Please use this sparingly. You may find relief with just using the muscle relaxer but the pain medicine is there if needed. Please take caution over the next few days to avoid activities that may exacerbate your symptoms.I would recommend reaching out to your primary care doctor on Wednesday for close follow-up. Please return to the emergency department if you develop any new symptoms such as weakness, numbness, worsening pain or have any new concerns. I have sent prescriptions to [facility] in [place]. I am prescribing a short course of narcotic pain medication for you. These are potentially dangerous and addictive medications that should be used carefully. These medications may constipate you. Take an zzsp-twc-glcckpl stool softener (docusate) twice daily with plenty of water while taking these medications. If you go 24 hours without a bowel movement, take [id number] miralax, per package instructions. Do not drink or drive while taking these medications. If you received narcotic or sedating medications while in the emergency department, do not drive for 24 hours. Store this medication in a safe, secure place and out of reach of children. It is a violation of federal law to give or sell this medication to another person or to use in a manner other than prescribed. The ED will not refill narcotic prescriptions, including prescriptions lost or stolen. To dispose of unwanted medications: 1. [facility] at [address] in [place] has a medication drop box. They accept prescription medications (in pill form) Wednesday through Wednesday 9:00 a.m. to 5:00 p.m. 2. The [facility] [employer] accepts prescription medications (in pill form only) for disposal year round. Call for more information. 3. Contact the [facility] for the next [facility] sponsored prescription drug collection event. , [phone], or [phone]; Note that many narcotic pain relievers also contain Tylenol/acetaminophen. Please ensure that your total dose of acetaminophen from all sources does not exceed 3 g (3000 mg) per day. Discharge Date/Time: 11/28/22 08:53
[2022-11-28 08:53] VITALS: BP 139/74
== END 2022-11-28 08:53 | disposition home or self-care (01) ==
LOC: ED 05:11
DX: M62.838 Other muscle spasm (principal)
CPT/HCPCS: 36415; 80053; 82550; 85025; 99283; 99284; A9270

== ENCOUNTER 2023-04-19 08:22 | Outpatient (CLI) | payer MEDICARE, BC ==
[2023-04-19 08:51] LABS: BASOPHILS % (AUTO) 0.4 %; EOSINOPHILS # (AUTO) 0.2 10^3/uL (0.0-0.7); EOSINOPHILS % (AUTO) 2.8 %; HCT - HEMATOCRIT 43.3 % (37.0-47.0); HGB - HEMOGLOBIN 14.1 g/dL (12.0-16.0); LYMPHOCYTES # (AUTO) 2.4 10^3/uL (1.5-3.5); LYMPHOCYTES % (AUTO) 30.8 %; MEAN CORPUSCULAR HEMOGLOBIN 29.7 pg (27.0-31.0); MEAN CORPUSCULAR HGB CONC 32.6 g/dL (32.0-36.0); MEAN CORPUSCULAR VOLUME 91.2 fL (81.0-99.0); MEAN PLATELET VOLUME 9.5 fL (7.9-10.8); MONOCYTES # (AUTO) 0.5 10^3/uL (0.0-1.0); MONOCYTES % (AUTO) 5.9 %; NEUTROPHILS # (AUTO) 4.7 10^3/uL (1.5-6.6); NEUTROPHILS % (AUTO) 59.8 %; PLT - PLATELET COUNT 277 10^3/uL (130-450); RED BLOOD COUNT 4.75 10^6/uL (4.20-5.40); RED CELL DISTRIBUTION WIDTH 12.7 % (12.0-15.0); WHITE BLOOD COUNT 7.8 x10^3/uL (4.8-10.8)
[2023-04-19 09:08] LABS: ALBUMIN 4.2 g/dL (3.2-5.5); ALBUMIN/GLOBULIN RATIO 1.5 (1.0-2.2); ALKALINE PHOSPHATASE 74 IU/L (42-121); ALT ALANINE AMINOTRANSFERASE 16 IU/L (10-60); AST ASPARTATE AMINOTRANSFERASE 13 IU/L (10-42); BILIRUBIN,TOTAL 0.5 mg/dL (0.2-1.0); BUN - BLOOD UREA NITROGEN 20 mg/dL (6-20); CALCIUM 9.4 mg/dL (8.5-10.3); CARBON DIOXIDE - CO2 27 mmol/L (21-32); CHLORIDE 107 mmol/L (101-111); CHOL/HDL RATIO 2.3 (<4.4); CHOLESTEROL 148 mg/dL; GFR - MDRD 54 (>89); GLUCOSE 126 mg/dL (74-104); HDL CHOLESTEROL 65 mg/dL; LDL CHOLESTEROL,CALCULATED 53 mg/dL; LDL/HDL RATIO 0.8 (<4.4); POTASSIUM 4.2 mmol/L (3.5-4.5); SODIUM 141 mmol/L (135-145); TRIGLYCERIDES 152 mg/dL (48-352); VLDL CHOLESTEROL 30 mg/dL
[2023-04-19 09:09] LABS: CREATININE,URINE 185.1 mg/dL; MICROALBUM/CREATININE RATIO,UR 18.4 ug/mg (<30.0); MICROALBUMIN,URINE 3.4 mg/dL
[2023-04-19 09:17] LABS: THYROID STIMULATING HORMONE 0.06 uIU/mL (0.34-5.60)
[2023-04-19 12:05] LABS: ESTIMATED AVERAGE GLUCOSE 123 mg/dL (70-100); HEMOGLOBIN A1c% 5.9 % (4.27-6.07)
[2023-04-21 13:10] LABS: A/G RATIO 1.2 (0.7-1.7); ALBUMIN 3.5 g/dL (2.9-4.4); ALPHA-1-GLOBULIN 0.2 g/dL (0.0-0.4); ALPHA-2-GLOBULIN 0.8 g/dL (0.4-1.0); GLOBULIN, TOTAL 2.9 g/dL (2.2-3.9); PROTEIN TOTAL 6.4 g/dL (6.0-8.5)
== END 2023-04-19 08:23 | disposition home or self-care (01) ==
LOC: LAB 08:22
PROVIDERS: ATTEND Psychiatry & Neurology Neurology
DX: G62.9 Polyneuropathy, unspecified (principal); E78.5 Hyperlipidemia, unspecified; R73.03 Prediabetes; E03.9 Hypothyroidism, unspecified; J45.20 Mild intermittent asthma, uncomplicated
CPT/HCPCS: 36415; 80053; 80061; 82043; 82570; 82607; 82746; 83036; 83721; 84155; 84165; 84439; 84443; 85025

== ENCOUNTER 2023-11-30 10:08 | Outpatient (CLI) | payer MEDICARE, BC ==
--- NOTE | 2023-12-01 09:39 | Mammography Report ---
BILATERAL DIGITAL SCREENING MAMMOGRAM 3D/2D: 11/30/2023 CLINICAL: Routine screening. Personal history of right breast cancer. Comparison is made to exams dated: 11/19/2022 mammogram, 07/01/2021 mammogram, and 06/26/2020 mammogr am - [facility]. Both breasts are almost entirely fatty (category a/<25% glandular tissue). There is a benign calcification in the right breast. There also are benign post operative findings i n the right breast. No significant masses, calcifications, or other findings are seen in either breast. There has been no significant interval change. IMPRESSION: BENIGN There is no mammographic evidence of malignancy. A 1 year screening mammogram is recommended. This exam was interpreted at Station ID: [id number]. NOTE: For mammograms, a report in lay terms will be sent to the patient. Approximately 15% of breast malignancies will not be visualized mammographically. In the management of a palpable breast mass, a negative mammogram must not discourage biopsy of a clinically suspicious lesion. Electronically Signed By: Moses coon/edmundo:11/30/2023 12:41:11 letter sent: No_Letter ACR BI-RADS Category 2: Benign Finding(s) 3342F PARENCHYMAL PATTERN: (F) - The breast(s) demonstrate(s) diffuse fatty replacement. BI-RADS CATEGORY: (2) - 2 RECOMMENDATION: (ANNUAL) - Recommend routine annual screening mammography. [id number] 1 year screening LATERALITY: (B)
== END 2023-11-30 10:09 | disposition home or self-care (01) ==
LOC: DI 10:08
PROVIDERS: ATTEND Internal Medicine Hematology & Oncology
DX: Z12.31 Encounter for screening mammogram for malignant neoplasm of breast (principal); Z85.3 Personal history of malignant neoplasm of breast

== ENCOUNTER 2023-12-07 14:23 | Outpatient (CLI) | payer MEDICARE, BC | END 2023-12-07 14:24 | disposition home or self-care (01) | LOC: LAB 14:23 | PROVIDERS: ATTEND Psychiatry & Neurology Neurology | DX: G62.9 Polyneuropathy, unspecified (principal) | CPT/HCPCS: 36415; 82607; 82746; 84155; 84165 ==

== ENCOUNTER 2023-12-29 09:10 | Outpatient (CLI) | payer MEDICARE, BC ==
[2023-12-29 09:23] LABS: BASOPHILS % (AUTO) 0.5 %; EOSINOPHILS # (AUTO) 0.2 10^3/uL (0.0-0.7); EOSINOPHILS % (AUTO) 2.7 %; HCT - HEMATOCRIT 43.7 % (37.0-47.0); LYMPHOCYTES # (AUTO) 3.3 10^3/uL (1.5-3.5); LYMPHOCYTES % (AUTO) 38.9 %; MEAN CORPUSCULAR HEMOGLOBIN 29.5 pg (27.0-31.0); MEAN CORPUSCULAR VOLUME 92.2 fL (81.0-99.0); MEAN PLATELET VOLUME 9.3 fL (7.9-10.8); MONOCYTES # (AUTO) 0.6 10^3/uL (0.0-1.0); MONOCYTES % (AUTO) 6.5 %; NEUTROPHILS # (AUTO) 4.3 10^3/uL (1.5-6.6); PLT - PLATELET COUNT 273 10^3/uL (130-450); RED BLOOD COUNT 4.74 10^6/uL (4.20-5.40); RED CELL DISTRIBUTION WIDTH 13.2 % (12.0-15.0); WHITE BLOOD COUNT 8.5 x10^3/uL (4.8-10.8)
[2023-12-29 09:38] LABS: ALBUMIN 4.2 g/dL (3.2-5.5); ALBUMIN/GLOBULIN RATIO 1.6 (1.0-2.2); ALKALINE PHOSPHATASE 67 IU/L (42-121); ALT ALANINE AMINOTRANSFERASE 20 IU/L (10-60); AST ASPARTATE AMINOTRANSFERASE 16 IU/L (10-42); BILIRUBIN,TOTAL 0.5 mg/dL (0.2-1.0); BUN - BLOOD UREA NITROGEN 18 mg/dL (6-20); CALCIUM 9.3 mg/dL (8.5-10.3); CHOL/HDL RATIO 2.3 (<4.4); CHOLESTEROL 155 mg/dL; CREATININE 1.1 mg/dL (0.6-1.3); GFR - MDRD 48 (>89); GLUCOSE 138 mg/dL (74-104); HDL CHOLESTEROL 68 mg/dL; LDL CHOLESTEROL,CALCULATED 53 mg/dL; LDL/HDL RATIO 0.8 (<4.4); TOTAL PROTEIN 6.8 g/dL (6.4-8.9); TRIGLYCERIDES 168 mg/dL (48-352); VLDL CHOLESTEROL 34 mg/dL
[2023-12-29 09:55] LABS: THYROID STIMULATING HORMONE 0.54 uIU/mL (0.34-5.60)
[2023-12-29 10:03] LABS: ESTIMATED AVERAGE GLUCOSE 128 mg/dL (70-100); HEMOGLOBIN A1c% 6.1 % (4.27-6.07)
[2023-12-29 14:41] LABS: CARBON DIOXIDE - CO2 24 mmol/L (21-32); CHLORIDE 105 mmol/L (101-111); POTASSIUM 4.1 mmol/L (3.5-4.5); SODIUM 138 mmol/L (135-145)
== END 2023-12-29 09:11 | disposition home or self-care (01) ==
LOC: LAB 09:10
PROVIDERS: ATTEND Internal Medicine
DX: E03.9 Hypothyroidism, unspecified (principal); R73.03 Prediabetes; E78.5 Hyperlipidemia, unspecified; I47.19 Other supraventricular tachycardia
CPT/HCPCS: 36415; 80053; 80061; 83036; 83721; 84439; 84443; 85025